=== PATIENT | male | born 1945 | race Caucasian/White ===

== ENCOUNTER → 2018-03-17 | Day surgery (SDC) | payer OTHER ==
[2018-03-08 11:21] VITALS: Ht 172.7 cm; Wt 105.5 kg
[~2018-03-17] VITALS: Ht 172.7 cm; Wt 105.5 kg
[~2018-03-17] MED LIST: ASCO500T3 PO; ASPI81TA28 PO; BIOFTAB30 PO; CARV6.252 PO; CITA20TA9 PO; FENO54TA PO; LIDOCAINE HCL 2% 2 ML VIAL (20MG/ML) ONE; LISI40TA PO; MULT-513 PO; PROPOFOL IV EMULSION 10 MG/ML 20 ML VIAL IV ONE; RANI150T85 PO; SIMV20TA2 PO; SODIUM CHLORIDE 0.9% 500ML 500 ML IV ONE
--- NOTE | 2018-03-17 11:21 | Endo History and Physical ---
History & Physical Date of Service: Mar 17, 2018. Chief Complaint: history of polyps,diarrhea Referring Physician: Dr. David Jordan History of Present Illness Screening colonoscopy. History of diarrhea Past Surgical History Hx Cardiac Surgery: Yes (CABG-2 VESSELS) Hx Internal Defibrillator: No Hx Pacemaker: No Hx Abdominal Surgery: Yes ([facility]) Hx of Implantable Prosthesis: No Hx Post-Op Nausea and Vomiting: No Hx Cancer Surgery: No Hx Thoracic Surgery: No Hx Orthopedic: No Hx Urinary Tract Surgery: No Family History None Social History Smoking Status: Never Smoker Hx Substance Use: No Hx Alcohol Use: Yes (OCCASIONALLY) Allergies Coded Allergies: No Known Allergies (Unverified , 03/08/18) Current Medications Reported Home Medications Medications Dose Route/Sig Max Daily Dose Days Date Category Zocor (Simvastatin) 20 Mg Tab 20 Mg PO QPM 03/08/18 Reported Prinivil (Lisinopril) 40 Mg Tab 40 Mg PO QPM 03/08/18 Reported Vitamin C (Ascorbic Acid) 500 Mg Tab 1 Tab PO QPM 03/08/18 Reported Mvi With Minerals (Multivitamins/Minerals) Tab 1 Tab PO QPM 03/08/18 Reported Tricor (Fenofibrate) 54 Mg Tab 54 Mg PO QPM 01/19/18 Reported Celexa (Citalopram Hydrobromide) 20 Mg Tab 20 Mg PO QPM 01/19/18 Reported Coreg (Carvedilol) 6.25 Mg Tab 6.25 Mg PO BID 01/19/18 Reported Bioflex (Bioflavonoid Products) 1 Tab Tab 1 Tab PO QPM 01/19/18 Reported Aspirin Ec (Aspirin) 81 Mg Tab 81 Mg PO QPM 01/19/18 Reported Zantac (Ranitidine HCl) 150 Mg Tab 150 Mg PO BID 01/19/18 Reported Vital Signs Weight (Kilograms): 105.45 Height (Feet): 5 Height (Inches): 8 Date Time Temp Pulse Resp B/P (MAP) Pulse Ox O2 Delivery O2 Flow Rate FiO2 03/17/18 10:55 36.8 61 18 179/101 (127) 93 Room Air 154/86 (108) Physical Exam General Appearance: WD/WN, no apparent distress Respiratory/Chest: Auscultation: breath sounds normal, no wheezing Cardiovascular: Heart Auscultation: RRR, no murmurs Abdomen: Inspection & Palpation: soft, no tenderness, guarding & rebound Assessment and Plan Colonoscopy today
--- NOTE | 2018-03-17 12:25 | GI REPORT ---
Procedure Date: 03/17/2018 11:15 AM Procedure: Colonoscopy Indications: Screening for colorectal malignant neoplasm, Incidental - Chronic diarrhea Medicines: Propofol per Anesthesia Complications: No immediate complications. Estimated blood loss: None. Estimated Blood Loss: Estimated blood loss: none. Procedure: Pre-Anesthesia Assessment: - Prior to the procedure, a History and Physical was performed, and patient medications, allergies and sensitivities were reviewed. The patient's tolerance of previous anesthesia was reviewed. - ASA Grade Assessment: III - A patient with severe systemic disease. After I obtained informed consent, the scope was passed under direct vision. Throughout the procedure, the patient's blood pressure, pulse, and oxygen saturations were monitored continuously. The Scope was introduced through the anus and advanced to the terminal ileum, with identification of the appendiceal orifice and IC valve. The colonoscopy was performed with ease. The patient tolerated the procedure well. The quality of the bowel preparation was good. The bowel preparation used was split dose MIralax. Findings: Multiple large-mouthed diverticula were found in the left colon. Normal mucosa was found in the entire colon. Biopsies for histology were taken with a cold forceps from the entire colon for evaluation of microscopic colitis. Verification of patient identification for the specimen was done by the physician and nurse using the patient's name, date and medical record number. Impression: - Diverticulosis in the left colon. - Normal mucosa in the entire examined colon. Biopsied. - The colon was otherwise normal to the terminal ileum with retroflexed views of the ascending colon and rectum. Recommendation: - Await pathology results. - Discharge patient to home (with escort). Chris Robertson M.D. Chris Robertson MD 03/17/2018 12:25:00 PM This report has been signed electronically. Note Initiated On: 03/17/2018 11:15 AM I attest to the content of the Intraoperative Record and orders documented therein, exceptions below
--- NOTE | 2018-03-17 12:26 | Discharge Instructions ---
Endoscopy Patient Instructions Date / Procedure(s) Performed Mar 17, 2018. Colonoscopy Allergy Information Coded Allergies: No Known Allergies (Unverified , 03/17/18) Discharge Date / Findings Mar 17, 2018. Diverticulosis Medication Instructions Stopped Medication(s): last dose ASA Wednesday Restart Stopped Medication(s): Resume all medication today. Provider Instructions Activity Restrictions - No exercising or heavy lifting for 24 hours. - Do not drink alcohol the day of the procedure. - Do not drive a car or operate machinery until the day after the procedure. - Do not make any important decisions or sign important papers in 24 hours after the procedure. Following Day: - Return to full activity which may include returning to work/school. Diet Start your diet with liquids and light foods (jello, soup, juice, toast). Then eat your usual diet if not nauseated. Treatment For Common After Affects For mild abdominal pain, bloating, or excessive gas: - Rest - Eat lightly - Lie on right side Follow-Up Information Follow-up with Dr. David Jordan as scheduled Anesthesia Information What You Should Know You have had a procedure that required some medicine to reduce anxiety and discomfort. This treatment is called moderate sedation. After receiving the treatment, you may be sleepy, but you will be able to breathe on your own. The effects of the treatment may last for several hours. Follow these instructions along with Activity/Diet recommendations noted above: * Do NOT do anything where dizziness or clumsiness would be dangerous. * Rest quietly at home today, then you can be up and about tomorrow. * Have a responsible person stay with you the rest of today. * You may have had an I.V. today. If so, you may take the dressing off later today. Recommendations Call your doctor if: * Trouble breathing * Continuous vomiting for more than 24 hours * Temperature above 101 degrees * Severe abdominal pain or bloating * Pain not relieved by pain medicine ordered * There is increased drainage or redness from any incision * A large amount of rectal bleeding greater than 2-3 tablespoons. (If you had a polyp/s removed or have hemorrhoids, a small amount of blood - from the rectum is to be expected.) * You have any unanswered questions or concerns. IN THE EVENT OF A SERIOUS EMERGENCY, GO TO THE NEAREST EMERGENCY ROOM Your discharge instructions were prepared by provider Chris Robertson. Patient Instructions Signature Page John Schofield Patient (or Guardian) Signature/Date: I have read and understand the instructions given to me by my caregivers. Caregiver/RN/Doctor Signature/Date: The above-named patient and/or guardian has received patient instructions on this date. + Original Patient Signature Page (only) stays with chart. Please make copy for patient.
[2018-03-17 12:55] VITALS: BP 141/91; PULSE 67; O2SAT 92
--- NOTE | 2018-03-17 13:37 | Anesthesiology Progress Note ---
Anesthesia Post Op Note Date & Time Mar 17, 2018 at 13:37 Vital Signs Pain Intensity: 0 Vital Signs Past 12 Hours Date Time Temp Pulse Resp B/P (MAP) Pulse Ox O2 Delivery O2 Flow Rate FiO2 03/17/18 12:55 67 18 141/91 (108) 92 Room Air 03/17/18 12:42 63 18 112/54 (73) 93 Room Air 03/17/18 12:22 70 18 126/72 (90) 90 Room Air 03/17/18 10:55 36.8 61 18 179/101 (127) 93 Room Air 154/86 (108) Notes Mental Status: alert / awake / arousable, participated in evaluation Pt Amnestic to Procedure: Yes Nausea / Vomiting: adequately controlled Pain: adequately controlled Airway Patency, RR, SpO2: stable & adequate BP & HR: stable & adequate Hydration State: stable & adequate Anesthetic Complications: no major complications apparent
== END | disposition home or self-care (01) ==
LOC: C.GI 10:34
PROVIDERS: ATTEND Internal Medicine Gastroenterology
DX: K52.9 Noninfective gastroenteritis and colitis, unspecified (principal); Z86.010 Personal history of colon polyps; K57.90 Diverticulosis of intestine, part unspecified, without perforation or abscess without bleeding; Z95.1 Presence of aortocoronary bypass graft; I10 Essential (primary) hypertension; N18.9 Chronic kidney disease, unspecified; K21.9 Gastro-esophageal reflux disease without esophagitis; F32.9 Major depressive disorder, single episode, unspecified; F17.220 Nicotine dependence, chewing tobacco, uncomplicated; E66.9 Obesity, unspecified; Z68.35 Body mass index [BMI] 35.0-35.9, adult; Z79.82 Long term (current) use of aspirin; Z79.899 Other long term (current) drug therapy; Z90.49 Acquired absence of other specified parts of digestive tract; I25.10 Atherosclerotic heart disease of native coronary artery without angina pectoris

== ENCOUNTER 2019-03-01 00:34 | Inpatient (IN) ==
[2019-03-01 01:31] LABS: Basophils # (auto) 0.04 K/uL (0-0.2); Basophils % (auto) 0.4 %; Eosinophils # (auto) 0.41 K/uL (0-0.5); Hematocrit (blood only) 44.6 % (42-52); Hemoglobin 16.2 g/dL (14.0-18.0); Immature Granulocytes # (auto) 0.05 K/uL (0.00-0.02); Immature Granulocytes % (auto) 0.5 %; Lymphocytes # (auto) 2.71 K/uL (1.2-3.4); Lymphocytes % (auto) 26.8 %; Mean Corpuscular Hgb Conc 36.3 g/dL (32-36); Mean Corpuscular Volume 98.9 fL (80-100); Mean Platelet Volume 8.9 fL (7.4-10.4); Monocytes # (auto) 1.06 K/uL (0.11-0.59); Monocytes % (auto) 10.5 %; Neutrophils # (auto) 5.86 K/uL (1.4-6.5); Neutrophils % (auto) 57.8 %; Platelet Count 186 K/uL (130-400); RDW Coefficient of Variation 12.5 % (11.5-14.5); RDW Standard Deviation 45.2 fL (36.4-46.3); Red Blood Count 4.51 M/uL (4.7-6.1); White Blood Count 10.13 K/uL (4.8-10.8)
[2019-03-01] MEDS ORDERED: fentaNYL citrate 100 MCG/2 ML VIAL IV STA (01:46)
[2019-03-01 02:04] LABS: Albumin Level 3.7 gm/dl (3.4-5.0); BUN Creatinine Ratio 12.9 (10-20); Calcium 8.9 mg/dl (8.5-10.1); Creatinine Clr Calc Pharmacy 82.8 ml/min; Est GFR (African American) 90.7; Est GFR (Non-African American) 78.2; Potassium 3.8 mmol/L (3.5-5.1)
[2019-03-01 02:07] LABS: Albumin Globulin Ratio 0.9 (0.9-2); Bilirubin,Total 0.5 mg/dl (0.2-1); Globulin 4.2 gm/dl (2.5-4.0); Total Protein 7.9 gm/dl (6.4-8.2)
[2019-03-01 02:07] LABS: Appearance Urine Clear (Clear); Bilirubin Urine Negative (Negative); Blood Urine Trace (Negative); Color Urine Yellow; Glucose Urine UA Negative (Negative); Ketones Urine Negative (Negative); Leukocyte Esterase Urine Negative (Negative); Nitrite Urine Negative (Negative); Protein Urine Negative (Negative); Urobilinogen Urine Negative (Negative)
[2019-03-01 02:19] LABS: RBC Urine 0-4 /hpf (0-4); WBC Urine 0-5 /hpf (0-5)
[2019-03-01 02:20] LABS: Bacteria Urine Negative (Negative)
[2019-03-01 02:54] LABS: Troponin I 0.046 ng/ml (0-0.045)
[2019-03-01] MEDS ORDERED: HYDROmorphone INJ 1 MG/ML SYRINGE IV STA (03:06)
--- NOTE | 2019-03-01 05:47 | History & Physical Report ---
Date of Service March 01, 2019 Assessment & Plan (1) Chest pain: Known coronary artery disease, status post CABG. Experiencing nonexertional chest/epigastric pain. Took nitroglycerin with relief. EKG does not show any acute changes. Serum troponin minimally elevated. Check repeat troponin. Continue aspirin, carvedilol, lipid management. Consult Cardiology. Epigastric/chest pain may be noncardiac. History of GERD. Consider trial of PPI. (2) Hx of coronary artery disease: Management of chest pain as above. (3) Flank pain: Patient complains of bilateral flank pain. No renal calculi or hydronephrosis noted on CT. Mild perinephric stranding was noted, but urine does not appear to be infected. Flank pain may be musculoskeletal in nature. Rule out rhabdomyolysis as discussed below. (4) Abnormal urinalysis: Urine chemistry positive for heme, but only 0-4 RBC's noted no microscopic analysis. Consider rhabdomyolysis. Check CPK with next labs. (5) HTN (hypertension): Continue carvedilol and lisinopril. (6) GERD (gastroesophageal reflux disease): Continue ranitidine. Consider trial of PPI if epigastric discomfort persists. (7) HLD (hyperlipidemia): Continue simvastatin and fenofibrate. Check CPK to rule out rhabdomyolysis. (8) DVT prophylaxis: Low to moderate risk for VTE. No anticoagulants due to possible hematuria. SCDs. Ambulate. (9) Discharge planning issues: Anticipated discharge to home. Family Medicine follow-up with Dr. Jordan. Cardiology follow-up with Dr. Barragan. History of Present Illness Chief Complaint: chest pain / flank pain Primary Care Provider: David Jordan 73-year-old male followed by Dr. Jordan for Family Medicine and Dr. Basurto for Cardiology. History of coronary artery disease (status post CABG and other medical problems as noted below). Ill last month with sinus drainage, bronchitis, diarrhea, and urticaria. Those symptoms have resolved. Presented to the ED complaining of bilateral flank pain. He was concerned that he was having problems with his kidneys. No fever, dysuria, gross hematuria. Also experiencing chest pain/epigastric pain. The pain does not radiate. Symptoms are nonexertional and not related to meals. He took a sublingual nitroglycerin tablet 2 nights prior to admission with some relief. No significant dyspnea. No nausea or vomiting. Allergies Allergy/AdvReac Type Severity Reaction Status Date / Time No Known Allergies Allergy Unverified 03/01/19 05:00 Home Medications Home Medications Medication Instructions Recorded Confirmed Type ascorbic acid (vitamin C) 1 g PO QPM 03/01/19 03/01/19 History aspirin 81 mg PO QPM 03/01/19 03/01/19 History carvedilol [Coreg] 6.25 mg PO BID 03/01/19 03/01/19 History citalopram 20 mg PO QPM 03/01/19 03/01/19 History fenofibrate 54 mg PO QPM 03/01/19 03/01/19 History lisinopril 40 mg PO QPM 03/01/19 03/01/19 History multivitamin with minerals 1 tab PO QPM 03/01/19 03/01/19 History ranitidine HCl 150 mg PO BID 03/01/19 03/01/19 History simvastatin 20 mg PO PM 03/01/19 03/01/19 History vit [id number] 1 tab PO QPM 03/01/19 03/01/19 History [Bioflex] Past Med/Surg History Medical History HTN (hypertension) (Chronic) HLD (hyperlipidemia) (Chronic) GERD (gastroesophageal reflux disease) (Chronic) Hx of coronary artery disease (Chronic) Surgical History S/P CABG x 2 (Chronic) Status post cholecystectomy (Chronic) Family History Father Coronary heart disease Parkinson disease Grandmother (Maternal) Diabetes Other No significant family history Social History Preferred Language: Danish Feels Safe at Home: Yes Smoking Status: Never smoker Review of Systems Constitutional: + sweats; no fever and no weight loss Eyes: no diplopia and no worsening vision Ear, Nose, Mouth, Throat: as per Subjective / HPI Respiratory: as per Subjective / HPI Cardiovascular: as per Subjective / HPI Gastrointestinal: + diarrhea/loose stools (few weeks ago, resolved); no nausea, no vomiting, no blood in stools and no melena Genitourinary (Male): + as per Subjective / HPI Musculoskeletal: + joint pain (back); no myalgia Integumentary: + rash (recent urticaria, resolved); no new lesions Neurologic: no headache(s) Endocrine: no polydipsia and no polyuria Hematologic / Lymphatic: no easy bleeding, no easy bruising and no lymphadenopathy Physical Exam Vital Signs (Past 24 Hours): Last Vital Signs Temp 36.7 C 03/01/19 00:39 Pulse 70 03/01/19 05:31 Resp 24 03/01/19 05:31 BP 136/72 03/01/19 05:31 Pulse Ox 94 03/01/19 05:31 Constitutional: WD/WN, vitals as above no acute distress Eyes: PERRL, conjunctivae normal, anicteric sclerae ENMT: external ear and nose normal, oropharynx normal Mouth: + edentulous Neck: trachea midline, no thyromegaly Respiratory: normal respiratory effort, lungs clear to auscultation Cardiovascular: Rate/Rhythm: regular rate Heart Sounds: + murmur (II/ sys murmur LSB); no gallop and no cardiac rub Vessels: normal peripheral pulses; no JVD Extremities: normal capillary refill; no calf tenderness and no edema Gastrointestinal (Abdomen): normal bowel sounds, soft, nontender, no hepatosplenomegaly ventral hernia Musculoskeletal: Head/Neck/Chest: neck supple Extremities: strength 5/5 throughout; no cyanosis and no clubbing Skin: no rashes, warm and dry Neurologic: PERRL, EOMI no facial palsy no dysarthria or aphasia patellar DTR's 2/2 bilat Psychiatric: Orientation: alert and oriented x 3 Affect: euthymic affect Lymphatic: no cervical lymphadenopathy Results & Data Laboratory Results Laboratory Results - last 24 hr 03/01/19 03/01/19 03/01/19 01:11 01:11 Unknown WBC 10.13 RBC 4.51 L Hgb 16.2 Hct 44.6 MCV 98.9 MCH 35.9 H MCHC 36.3 H RDW Std Deviation 45.2 RDW Coeff of Marti 12.5 Plt Count 186 MPV 8.9 Immature Gran % (Auto) 0.5 Neut % (Auto) 57.8 Lymph % (Auto) 26.8 Millard % (Auto) 10.5 Eos % (Auto) 4.0 Baso % (Auto) 0.4 Immature Gran # (Auto) 0.05 H Neut # (Auto) 5.86 Lymph # (Auto) 2.71 Millard # (Auto) 1.06 H Eos # (Auto) 0.41 Baso # (Auto) 0.04 Sodium 140 Potassium 3.8 Chloride 104 Carbon Dioxide 30 Anion Gap 6.0 BUN 13 Creatinine 0.97 Est Cr Clr Drug Dosing 82.8 Est GFR ( Amer) 90.7 Est GFR (Non-Af Amer) 78.2 BUN/Creatinine Ratio 12.9 Glucose 92 Calcium 8.9 Total Bilirubin 0.5 AST 23 ALT 27 Alkaline Phosphatase 70 Troponin I 0.046 H* Total Protein 7.9 Albumin 3.7 Globulin 4.2 H Albumin/Globulin Ratio 0.9 Lipase 214 Urine Color Urine Appearance Urine pH POC Urine pH 5 Ur Specific Roosevelt Urine Protein POC Urine Protein Trace H Urine Glucose (UA) POC Ur Glucose (UA) Normal Urine Ketones POC Urine Ketones Negative Urine Blood POC Urine Blood Trace H Urine Nitrite POC Urine Nitrite Negative Urine Bilirubin POC Urine Bilirubin Negative Urine Urobilinogen POC Urine Urobilinogen Normal Ur Leukocyte Esterase POC U Leukocyte Esteras Negative Urine RBC Urine WBC Ur Epithelial Cells Urine Bacteria Hyaline Casts 03/01/19 Unknown WBC RBC Hgb Hct MCV MCH MCHC RDW Std Deviation RDW Coeff of Marti Plt Count MPV Immature Gran % (Auto) Neut % (Auto) Lymph % (Auto) Millard % (Auto) Eos % (Auto) Baso % (Auto) Immature Gran # (Auto) Neut # (Auto) Lymph # (Auto) Millard # (Auto) Eos # (Auto) Baso # (Auto) Sodium Potassium Chloride Carbon Dioxide Anion Gap BUN Creatinine Est Cr Clr Drug Dosing Est GFR ( Amer) Est GFR (Non-Af Amer) BUN/Creatinine Ratio Glucose Calcium Total Bilirubin AST ALT Alkaline Phosphatase Troponin I Total Protein Albumin Globulin Albumin/Globulin Ratio Lipase Urine Color Yellow Urine Appearance Clear Urine pH 7.0 POC Urine pH Ur Specific Roosevelt 1.010 Urine Protein Negative POC Urine Protein Urine Glucose (UA) Negative POC Ur Glucose (UA) Urine Ketones Negative POC Urine Ketones Urine Blood Trace H POC Urine Blood Urine Nitrite Negative POC Urine Nitrite Urine Bilirubin Negative POC Urine Bilirubin Urine Urobilinogen Negative POC Urine Urobilinogen Ur Leukocyte Esterase Negative POC U Leukocyte Esteras Urine RBC 0-4 Urine WBC 0-5 Ur Epithelial Cells 5-10 H Urine Bacteria Negative Hyaline Casts 10-[address] ABD & PELVIS (preliminary interpretation per [employer]): No hydronephrosis No renal calculi Mild nonspecific perinephric stranding bilaterally noted on previous scan performed on 01/19/18 Colonic diverticulosis without evidence of diverticulitis No obstruction or free air Elevated right hemidiaphragm with associated pulmonary atelectasis Coronary artery calcifications Multilevel degenerative disease of lumbar spine ECG Additional Comments: EKG performed at 0115 reviewed and demonstrated normal sinus rhythm at 75/ min, no acute ST or T wave abnormalities.
[2019-03-01] MEDS ORDERED: NITROGLYCERIN SL 0.4 MG/TAB TAB SL PRN (06:05)
[2019-03-01] MEDS ORDERED: ACETAMINOPHEN 325 MG TAB PO PRN (06:05)
--- NOTE | 2019-03-01 06:34 | Emergency Department Note ---
Entered by Merrick Walls acting as a scribe for History of Present Illness General Chief complaint: Urinary Symptoms Stated complaint: KIDNEY PROBLEMS Time Seen by Provider: 03/01/19 00:46 Source: patient History of Present Illness Onset (ago): day(s) 4 Location: back Pain Consistency: + constant Maximum Pain Intensity: 5 Associated symptoms: + other (Positive for abdominal pain, numbness, weakness, and a rash.) The patient is a 73 year old male who presents to the emergency department with complaints of constant back pain beginning four days ago. The patient states that he feels as though his kidneys are not keeping up with his fluid intake. He notes that he has back pain and abdominal pain for the last four days that worsened last night. He reports that he is retaining fluid. He also complains of occasional numbness in his right arm, both hands, and tongue that started four days ago. The patient states that his numbness resolves when he urinates. He also complains of weakness that has significantly increased tonight. The patient describes an episode of hives that lasted for approximately 3 days. This occurred 4 days ago. He notes that he has a history of a heart bypass. He notes that he often gets indigestion, but he reports that he does not have any indigestion now. The patient states that he has been sick for the last month. Home Medications Home Medications Medication Instructions Recorded Confirmed Type ascorbic acid (vitamin C) 1 g PO QPM 03/01/19 03/01/19 History aspirin 81 mg PO QPM 03/01/19 03/01/19 History carvedilol [Coreg] 6.25 mg PO BID 03/01/19 03/01/19 History citalopram 20 mg PO QPM 03/01/19 03/01/19 History fenofibrate 54 mg PO QPM 03/01/19 03/01/19 History lisinopril 40 mg PO QPM 03/01/19 03/01/19 History multivitamin with minerals 1 tab PO QPM 03/01/19 03/01/19 History ranitidine HCl 150 mg PO BID 03/01/19 03/01/19 History simvastatin 20 mg PO PM 03/01/19 03/01/19 History vit [id number] 1 tab PO QPM 03/01/19 03/01/19 History [Bioflex] Allergies Allergy/AdvReac Type Severity Reaction Status Date / Time No Known Allergies Allergy Unverified 03/01/19 05:00 Past Med/Surg History Medical History HTN (hypertension) (Chronic) HLD (hyperlipidemia) (Chronic) GERD (gastroesophageal reflux disease) (Chronic) Hx of coronary artery disease (Chronic) Surgical History S/P CABG x 2 (Chronic) Status post cholecystectomy (Chronic) Family History Father Coronary heart disease Parkinson disease Grandmother (Maternal) Diabetes Other No significant family history Social History Preferred Language: Jordanian Communication Ability: Effective [employer] Required: No Beliefs That Will Affect Care: None Current Living Situation: Spouse Current Living Situation Comment: Lives at home with and brother. Other Information That Helps Us Care for You: No Feels Safe at Home: Yes Safety Concerns: Feels Safe At This Time Smoking Status: Never smoker Hx Alcohol Use: No Hx Substance Use: No Review of Systems See HPI for pertinent positives & negatives. and A total of 10 systems reviewed and were otherwise negative Physical Exam Vital Signs Vital Signs - 24 hr 03/01/19 00:39 03/01/19 01:28 03/01/19 02:03 Temperature 36.7 C Temperature Source Oral Sepsis Recent Fever Within 48 Hours No Sepsis New/Unexplained Change in Mental Status No Sepsis Action Taken by Nursing No Action Required Pulse Rate 79 Pulse Rate [Bilateral Apical] 75 71 Respiratory Rate 16 18 20 Respiratory Effort / Characteristics Non-Labored Spontaneous Non-Labored Non-Labored Respiratory Depth Normal Normal Normal Blood Pressure 146/67 H Blood Pressure [Left Arm] 134/90 156/87 H Blood Pressure Mean 93 Blood Pressure Mean [Left Arm] 104 110 Pulse Oximetry 94 95 94 Oxygen Delivery Method Room Air Room Air Room Air 03/01/19 02:23 03/01/19 02:51 03/01/19 03:12 Temperature Temperature Source Sepsis Recent Fever Within 48 Hours Sepsis New/Unexplained Change in Mental Status Sepsis Action Taken by Nursing Pulse Rate Pulse Rate [Bilateral Apical] 71 71 69 Respiratory Rate 18 18 20 Respiratory Effort / Characteristics Non-Labored Respiratory Depth Normal Blood Pressure Blood Pressure [Left Arm] 136/79 146/87 H 152/77 H Blood Pressure Mean Blood Pressure Mean [Left Arm] 98 106 102 Pulse Oximetry 92 95 94 Oxygen Delivery Method Room Air Room Air Room Air 03/01/19 04:40 03/01/19 05:01 03/01/19 05:31 Temperature Temperature Source Sepsis Recent Fever Within 48 Hours Sepsis New/Unexplained Change in Mental Status Sepsis Action Taken by Nursing Pulse Rate 76 73 70 Pulse Rate [Bilateral Apical] Respiratory Rate 15 20 24 Respiratory Effort / Characteristics Respiratory Depth Blood Pressure 119/66 114/84 136/72 Blood Pressure [Left Arm] Blood Pressure Mean 83 94 93 Blood Pressure Mean [Left Arm] Pulse Oximetry 95 92 94 Oxygen Delivery Method Room Air Room Air Room Air HEENT: Head - normocephalic and atraumatic Pupils are equal, round, and reactive to light. Extraocular eye muscles are intact, and sclera are anicteric. Nose - moist nasal mucosa without discharge. Mouth - moist buccal mucosa. Oropharynx is nonerythematous and there is no tonsillar exudate or edema noted. Neck: Supple; no JVD, nuchal rigidity, cervical lymphadenopathy, or auscultated bruits. Heart: Regular rate and rhythm. There is a normal S1 and S2 with no murmurs, clicks, or gallops appreciated. Lungs: Clear to auscultation bilaterally with no wheezes, rales, or rhonchi. Abdomen: Soft, completely nontender, nondistended, with good bowel sounds. There are no palpable pulsatile masses or hepatosplenomegaly. There is no guarding, rigidity, or rebound noted. Back: No CVA tenderness. Extremities: No evidence of cyanosis, clubbing, or edema. There are easily palpable peripheral pulses. Skin: warm and dry with good turgor and no rashes. Course 0053: The patient was evaluated in room A12. A complete history and physical examination were performed. IV lock was established and labs were drawn as above. Previous electronic medical records were reviewed. 0146: Fentanyl Citrate 50mcg IV 0236: I reevaluated and updated the patient. He had some relief of his pain with medications, but he states that his pain is coming back. 0306: Dilaudid 1mg IV. The patient will go for CT scan of the abdomen/pelvis. 0412: I rechecked the patient. He states that the Dilaudid helped his back pain. 0429: Upon reevaluation, the patient is stable. I discussed the results and treatment plan with the patient. He verbalizes understanding and agreement. I discussed the patient's case with Dr. Ralph - NICOLÁS Box. The patient will be evaluated for further management and care. Consultations Consultation #1: I reviewed the patient's case with NICOLÁS Michael. He will evaluate the patient for further management. Time: 04:29 Administered Medications Discontinued Medications Fentanyl Citrate (Fentanyl Citrate) 50 mcg IV NOW STA Stop: 03/01/19 01:47 Last Admin: 03/01/19 01:53 Dose: 50 mcg Documented by: [id number] Hydromorphone HCl (Dilaudid) 1 mg IV NOW STA Stop: 03/01/19 03:07 Last Admin: 03/01/19 03:10 Dose: 1 mg Documented by: [id number] Medical Decision Making Differential Diagnosis The patient is a 73 year old male who presents to the emergency department with complaints of constant back pain beginning four days ago and epigastric pain t hat seemed to worsen since yesterday. Differential diagnoses include: cardiac ischemia, pancreatitis, renal failure, liver failure, UTI, and pyelonephritis. Medical Records Attestation: I reviewed the patient's medical records. Home Medications Current Medication List: was personally reviewed by me Laboratory Data Attestation: I reviewed the patient's lab results. Result diagrams: 03/01/19 01:11 03/01/19 01:11 Lab Results 03/01/19 03/01/19 03/01/19 Range/Units 01:11 01:11 Unknown WBC 10.13 (4.8-10.8) K/uL RBC 4.51 L (4.7-6.1) M/uL Hgb 16.2 (14.0-18.0) g/dL Hct 44.6 (42-52) % MCV 98.9 (80-100) fL MCH 35.9 H (25-34) pg MCHC 36.3 H (32-36) g/dL RDW Std Deviation 45.2 (36.4-46.3) fL RDW Coeff of Marti 12.5 (11.5-14.5) % Plt Count 186 (130-400) K/uL MPV 8.9 (7.4-10.4) fL Immature Gran % (Auto) 0.5 % Neut % (Auto) 57.8 % Lymph % (Auto) 26.8 % [place] % (Auto) 10.5 % Eos % (Auto) 4.0 % Baso % (Auto) 0.4 % Immature Gran # (Auto) 0.05 H (0.00-0.02) K/uL Neut # (Auto) 5.86 (1.4-6.5) K/uL Lymph # (Auto) 2.71 (1.2-3.4) K/uL [place] # (Auto) 1.06 H (0.11-0.59) K/uL Eos # (Auto) 0.41 (0-0.5) K/uL Baso # (Auto) 0.04 (0-0.2) K/uL Sodium 140 (136-145) mmol/L Potassium 3.8 (3.5-5.1) mmol/L Chloride 104 (98-107) mmol/L Carbon Dioxide 30 (21-32) mmol/L Anion Gap 6.0 (3-11) BUN 13 (7-18) mg/dl Creatinine 0.97 (0.6-1.4) mg/dl Est Cr Clr Drug Dosing 82.8 ml/min Est GFR ( Amer) 90.7 Est GFR (Non-Af Amer) 78.2 BUN/Creatinine Ratio 12.9 (10-20) Glucose 92 (70-99) mg/dl Calcium 8.9 (8.5-10.1) mg/dl Total Bilirubin 0.5 (0.2-1) mg/dl AST 23 (15-37) U/L ALT 27 (12-78) U/L Alkaline Phosphatase 70 (45-117) U/L Troponin I 0.046 H* (0-0.045) ng/ml Total Protein 7.9 (6.4-8.2) gm/dl Albumin 3.7 (3.4-5.0) gm/dl Globulin 4.2 H (2.5-4.0) gm/dl Albumin/Globulin Ratio 0.9 (0.9-2) Lipase 214 (73-393) U/L Urine Color Urine Appearance (Clear) Urine pH (4.5-7.5) POC Urine pH 5 (4.5-7.5) Ur Specific [place] (1.000-1.030) Urine Protein (Negative) POC Urine Protein Trace H (Negative) Urine Glucose (UA) (Negative) POC Ur Glucose (UA) Normal (Normal) Urine Ketones (Negative) POC Urine Ketones Negative (Negative) Urine Blood (Negative) POC Urine Blood Trace H (Negative) Urine Nitrite (Negative) POC Urine Nitrite Negative (Negative) Urine Bilirubin (Negative) POC Urine Bilirubin Negative (Negative) Urine Urobilinogen (Negative) POC Urine Urobilinogen Normal (Normal) Ur Leukocyte Esterase (Negative) POC U Leukocyte Esteras Negative (Negative) Urine RBC (0-4) /hpf Urine WBC (0-5) /hpf Ur Epithelial Cells (0-5) /lpf Urine Bacteria (Negative) Hyaline Casts (0-5) /lpf 03/01/19 Range/Units Unknown WBC (4.8-10.8) K/uL RBC (4.7-6.1) M/uL Hgb (14.0-18.0) g/dL Hct (42-52) % MCV (80-100) fL MCH (25-34) pg MCHC (32-36) g/dL RDW Std Deviation (36.4-46.3) fL RDW Coeff of Marti (11.5-14.5) % Plt Count (130-400) K/uL MPV (7.4-10.4) fL Immature Gran % (Auto) % Neut % (Auto) % Lymph % (Auto) % [place] % (Auto) % Eos % (Auto) % Baso % (Auto) % Immature Gran # (Auto) (0.00-0.02) K/uL Neut # (Auto) (1.4-6.5) K/uL Lymph # (Auto) (1.2-3.4) K/uL [place] # (Auto) (0.11-0.59) K/uL Eos # (Auto) (0-0.5) K/uL Baso # (Auto) (0-0.2) K/uL Sodium (136-145) mmol/L Potassium (3.5-5.1) mmol/L Chloride (98-107) mmol/L Carbon Dioxide (21-32) mmol/L Anion Gap (3-11) BUN (7-18) mg/dl Creatinine (0.6-1.4) mg/dl Est Cr Clr Drug Dosing ml/min Est GFR ( Amer) Est GFR (Non-Af Amer) BUN/Creatinine Ratio (10-20) Glucose (70-99) mg/dl Calcium (8.5-10.1) mg/dl Total Bilirubin (0.2-1) mg/dl AST (15-37) U/L ALT (12-78) U/L Alkaline Phosphatase (45-117) U/L Troponin I (0-0.045) ng/ml Total Protein (6.4-8.2) gm/dl Albumin (3.4-5.0) gm/dl Globulin (2.5-4.0) gm/dl Albumin/Globulin Ratio (0.9-2) Lipase (73-393) U/L Urine Color Yellow Urine Appearance Clear (Clear) Urine pH 7.0 (4.5-7.5) POC Urine pH (4.5-7.5) Ur Specific [place] 1.010 (1.000-1.030) Urine Protein Negative (Negative) POC Urine Protein (Negative) Urine Glucose (UA) Negative (Negative) POC Ur Glucose (UA) (Normal) Urine Ketones Negative (Negative) POC Urine Ketones (Negative) Urine Blood Trace H (Negative) POC Urine Blood (Negative) Urine Nitrite Negative (Negative) POC Urine Nitrite (Negative) Urine Bilirubin Negative (Negative) POC Urine Bilirubin (Negative) Urine Urobilinogen Negative (Negative) POC Urine Urobilinogen (Normal) Ur Leukocyte Esterase Negative (Negative) POC U Leukocyte Esteras (Negative) Urine RBC 0-4 (0-4) /hpf Urine WBC 0-5 (0-5) /hpf Ur Epithelial Cells 5-10 H (0-5) /lpf Urine Bacteria Negative (Negative) Hyaline Casts 10-30 H (0-5) /lpf Imaging Data Radiologist's Impression: Radiology results as stated below per my review and the radiologist's interpretation: CT ABDOMEN & PELVIS Without Contrast: Comparison: CT abdomen and pelvis 01/19/18 No renal stone or hydronephrosis. Mild nonspecific perinephric stranding bilaterally, similar to prior. Colonic diverticulosis without evidence of acute diverticulitis. No free air or free fluid. No appendix. No bowel obstruction. Hepatic steatosis. Post cholecystectomy. No biliary ductal dilation. Elevation of right hemidiaphragm and atelectasis of right middle lobe and anterior and lateral right basilar segments. Fat-containing left inguinal hernia. Post sternotomy and CABG. Coronary artery calcifications. Atherosclerotic calcifications. Multilevel degenerative changes of the lumbar spine. Posterior disc/osteophytes and severe facet arthropathy cause moderate bilateral L4-5 foraminal narrowing. Healed rib fractures. Radiologist: Aldo Dubon MD. ECG Data Attestation: I personally reviewed and interpreted this ECG as follows: Indication: back/shoulder pain Rate (beats per minute): 75 Rhythm: normal sinus Findings: no PAC, no PVC, no ST depression and no ST elevation Blood Pressure Blood Pressure Findings: Elevated blood pressure Blood Pressure Disposition: further management by hospitalist MDM Narrative The patient is a 73 year old male who presents to the emergency department with complaints of constant back pain beginning four days ago and epigastric discomfort and weakness that worsened last night. The patient's pain was relieved with IV Dilaudid. Laboratory studies were fairly unremarkable with a normal lipase, normal LFTs, and a normal creatinine. The patient does have some blood in the urine. The patient had a mildly elevated troponin. This in conjunction with the patient's increased weakness had me concerned for cardiac ischemia. The patient had exertional chest pain approximately 10 years ago and had a stent placed in the LAD. I discussed the case with the [facility] Hospitalist and they will evaluate for further management. Impression & Plan Epigastric pain, Weakness Discharge Plan Visit Data *Final* Discharge Date/Time: 03/01/19 05:45 Chief Complaint: Urinary Symptoms Stated Complaint: KIDNEY PROBLEMS ED Provider: Syeda Rubio Discharge Problem: Epigastric pain, Weakness Patient Disposition: Admitted As Inpatient Discharge Instructions Interventions: ED Discharge Assessment Last Done: 03/01/19 05:45 The scribe's documentation has been prepared under my direction and personally reviewed by me in its entirety. I confirm that the note above accurately reflects all work, treatment, procedures, and medical decision making performed by me.
[2019-03-01 07:43] LABS: Albumin Level 3.4 gm/dl (3.4-5.0); BUN Creatinine Ratio 14.2 (10-20); Bilirubin Direct 0.1 mg/dl (0-0.2); Calcium 8.6 mg/dl (8.5-10.1); Creatinine Clr Calc Pharmacy 72.8 ml/min; Est GFR (African American) 77.9; Est GFR (Non-African American) 67.2; Potassium 3.7 mmol/L (3.5-5.1)
[2019-03-01 07:54] LABS: Albumin Globulin Ratio 0.9 (0.9-2); Bilirubin,Total 0.4 mg/dl (0.2-1); Creatine Kinase MB 1.6 ng/ml (0.5-3.6); Globulin 3.9 gm/dl (2.5-4.0); Total Protein 7.3 gm/dl (6.4-8.2); Troponin I 0.052 ng/ml (0-0.045)
--- NOTE | 2019-03-01 07:57 | CT Scan Report ---
ABDOMEN AND PELVIS CT WITHOUT CONTRAST CT DOSE: 2062.47 mGy.cm HISTORY: Acute hematuria with low back pain eval of kidneys/hematuria TECHNIQUE: Multiaxial CT images of the abdomen and pelvis were performed without contrast. A dose lo wering technique was utilized adhering to the principles of ALARA. COMPARISON STUDY: CT abdomen pelvis 01/19/2018 FINDINGS: Prior median sternotomy and CABG. [place] coronary arterial calcifications are noted. Chronic right he midiaphragm elevation with right basilar atelectasis/scarring. Mild left basilar atelectasis also not ed. There is no pneumatosis or pneumoperitoneum. Prior cholecystectomy. Hepatic steatosis. Liver is otherwise unremarkable. Spleen, pancreas and adren al glands are unremarkable. Nonspecific mild bilateral perinephric stranding. There is no renal or ur eteral calculi identified. Urinary bladder is partially decompressed with mild wall thickening. Prost ate is mildly enlarged. Small to moderate sized fat filled left inguinal hernia. Calcification of the aorta without aneurysm. No adenopathy. There is no bowel obstruction identified. Colonic diverticulo sis. No definite CT evidence of acute diverticulitis. Terminal ileum and appendix appear normal. No a scites or mesenteric inflammation. Moderate sized fat filled subxiphoid ventral abdominal wall hernia , diastases of 3.4 cm. Healed remote right-sided rib fractures. Multilevel spondylitic spurring with facet arthropathy. IMPRESSION: 1. No acute intra-abdominal or intrapelvic abnormality identified. 2. No bowel obstruction or focal bowel wall thickening. Normal appendix. 3. Colonic diverticulosis without acute diverticulitis. 4. Prostamegaly with mild urinary bladder wall thickening suggestive of chronic bladder outlet obstru ction. Correlate with urinalysis to exclude cystitis. 5. Hepatic steatosis. 6. Additional findings as above. Electronically signed by: Kirill Lr M.D. 03/01/2019 7:55 AM
[2019-03-01] MEDS: CARVEDILOL 6.25 MG TAB PO SCH ×2 (08:07→21:11)
[2019-03-01] MEDS ORDERED: MoRPHine SULFATE 2 MG/ML CARP IV STA ×2 (08:54→14:53)
[2019-03-01] MEDS ORDERED: MoRPHine SULFATE 2 MG/ML CARP ONE (09:01)
[2019-03-01] MEDS: OXYCODONE HCL IR 5 MG TAB (IMMEDIATE RELEASE) PO PRN ×2 (09:06→22:45)
--- NOTE | 2019-03-01 09:08 | Hospitalist Progress Note ---
Date of Service March 01, 2019 Assessment & Plan (1) Chest pain: as per admitting physician the patient has Known coronary artery disease, status post CABG, and reported that patient had Experienced nonexertional chest/epigastric pain, and Took nitroglycerin with relief. admission EKGs have not shown EKG changes of acute ischemia but troponins have been minimally elevated above reference ranges of normal troponin 0.046 and 0.052 will trend troponins and keep on telemetry monitoring Continue aspirin, carvedilol, lipid management. cardiology consult was requested by admitting hospitalist Will also consider other non cardiac etiologies and place on trial of Pantoprazole in case of GERD, patient already on ranitidine (2) Hx of coronary artery disease: Management as above (3) Flank pain: Bilateral flank pain. No renal calculi or hydronephrosis noted on CT. Mild perinephric stranding was noted, but urine does not appear to be infected. Flank pain may be musculoskeletal in nature. No evidence of rhabdomyolysis as CK is normal Have advised patient of continuing hospital stay to keep patient for pain control including baclofen, acetaminophen, prn narcotic with bowel regimen, will have patient be evaluated by PT/OT (4) Abnormal urinalysis: admission Urine chemistry positive for heme, but only 0-4 RBC's noted no microscopic analysis No evidence of rhabdomyolysis as CK is normal will repeat the urine analysis (5) HTN (hypertension): Continue carvedilol and lisinopril. (6) GERD (gastroesophageal reflux disease): place on trial of Pantoprazole in case of GERD, patient already on ranitidine (7) HLD (hyperlipidemia): Continue simvastatin and fenofibrate. No evidence of rhabdomyolysis as CK is normal (8) DVT prophylaxis: Low to moderate risk for VTE. SCDs. Ambulation (9) Discharge planning issues: will need Family Medicine follow-up with Dr. Jordan. Cardiology follow-up with Dr. Barragan. Subjective Patient seen and examined this AM. He was in discomfort for back pain and the the back pain of the lower back of the right and left flanks.Reports that back pain since the weekend. Denied chest pain. denies shortness of breath. Patient reported having minimal sleep Patient rolled over to the side for the back exam Physical Exam Vital Signs (Past 24 Hours): Last Vital Signs Temp 36.5 C 03/01/19 07:36 Pulse 60 04/03/19 07:36 Resp 18 03/01/19 07:36 BP 156/83 H 03/01/19 07:36 Pulse Ox 93 03/01/19 07:36 Constitutional: back pain Eyes: PERRL, conjunctivae normal, anicteric sclerae EOM intact bilaterally ENMT: external ear and nose normal, oropharynx normal Respiratory: normal respiratory effort, lungs clear to auscultation Cardiovascular: Rate/Rhythm: + bradycardic Gastrointestinal (Abdomen): normal bowel sounds, soft, nontender, no hepatosplenomegaly Musculoskeletal: Head/Neck/Chest: normocephalic and head atraumatic patient reports of pain of the right and left costovertebral angle, there is no tenderness along the spine Neurologic: PERRL, EOMI, accommodation nl, no face palsy, no dysarthria Psychiatric: Orientation: alert and oriented x 3
[2019-03-01] MEDS: SENNA 8.6 MG TAB PO SCH (09:47)
[2019-03-01] MEDS ORDERED: BACLOFEN 10 MG TAB PO ONE (10:00)
[2019-03-01] MEDS: PANTOprazole 40 MG TAB PO SCH (10:05)
[2019-03-01 10:40] LABS: Appearance Urine Cloudy (Clear); Bacteria Urine Automated Negative (Negative); Blood Urine Trace (Negative); Color Urine Dark Yellow; Epithelial Cell Urine Auto >30 /lpf (0-5); Glucose Urine UA Negative (Negative); Ketones Urine Trace (Negative); Leukocyte Esterase Urine Negative (Negative); Nitrite Urine Negative (Negative); Protein Urine Trace (Negative); RBC Urine Automated 0-4 /hpf (0-4); Specific Gravity Urine 1.023 (1.000-1.030); Urobilinogen Urine Negative (Negative)
[2019-03-01 10:45] LABS: Bilirubin Urine Negative (Negative); Ictotest Urine Negative (Negative)
[2019-03-01 10:51] LABS: Cast Urine Automated >30 /lpf (0-5); Granular Casts Urine 20-30 /lpf (0)
[2019-03-01 10:52] LABS: Mucus Urine Present (None Prsent)
--- NOTE | 2019-03-01 11:02 | Cardiology Consultation ---
Date of Consultation March 01, 2019 Assessment & Plan (1) Flank pain: The patient presented to the emergency room overnight last night with complaints of bilateral flank pain posteriorly at the lower margins. He also describes recent on and off again indigestion and diarrhea. He has had concern over the last few weeks that he was having a recurrence of a similar illness to what he was hospitalized for last year at which time he presented with what was ultimately diagnosed as Campylobacter enteritis with positive stool culture and acute kidney injury. Patient states he has been trying to "drink plenty of water at home." CT of the abdomen and pelvis has been nonrevealing thus far. CPK is not suggestive of rhabdomyolysis. I discussed his case with Dr. Desir of the hospitalist group, and I recommended repeating stool culture and Clostridium difficile testing. (2) Chest pain: The patient describes recent episodic chest tightness, 3 recent episodes at home 1 of which he took nitroglycerin. His EKG is normal x2. He has a mild elevation in cardiac enzymes x2. Of note when he was acutely ill in December 2017 with significant acute kidney injury, he had one troponin level drawn that was normal he did not have a significant troponin elevation despite significant noncardiac illness at that time. I believe the symptoms that he is experiencing represent angina is being brought on due to his physiologic stress of yet to be determined noncardiac illness. He is asymptomatic from an anginal standpoint at present and his EKG is normal, and therefore I am going to hold off on systemic anticoagulation. He should continue his outpatient cardiac medications. Further ischemic evaluation Will be pursued after assessment of his flank pain/low back pain is completed. Ordered a transthoracic echocardiogram. We will follow the patient. He has not on pharmacologic DVT prophylaxis at present, will reassess candidacy of this pending potential need for invasive procedures. History of Present Illness Attending Physician: Tremaine Desir MD History of Present Illness John Schofield is a 73-year-old male seen in cardiology consultation per the request of Dr. Ralph for the evaluation of recent chest tightness, and mild elevation in troponin I. The patient states that since early January he has not quite been feeling himself. This started with a significant sinus infection. He did not receive antibiotics for but notes thick copious sinus drainage and postnasal drip. After that resolved he started having episodic diarrhea. He recalls having 3 significant days in a row with diarrhea last month. Since then he has had waxing and waning occasional significant diarrhea episodes. For the last 5 days he specifically felt like he was not quite himself. Early in the day yesterday he felt that perhaps he was feeling better but then had recurrence of the pain at the lower margin of his posterior ribs that occurred shortly after an episode of diarrhea. He notes that with the episodic pain in his back, diarrhea, and this indigestion feeling, he has had occasional chest tightness. He believes he has had chest tightness 3 times in the last week. He took nitroglycerin on 1 occasion for this. Mr. Schofield has a history of chronic coronary heart disease. He had most recently been seen by the undersigned as an outpatient on 07/04/18 at which time he describes stable cardiac signs and symptoms. His coronary heart disease became recognized in 2008 when he presented with complaints of exertional shortness of breath. A stress echocardiogram was equivocal due to technically limited images with poor delineation of the endocardial border. He went on to have a nuclear stress test that revealed apical ischemia as well as transient ischemic dilatation of the left ventricle. Follow-up cardiac catheter[place] [facility] [place] a 60% left main stenosis as confirmed by intravascular ultrasound assessment. No significant obstructive disease was noted elsewhere. He therefore underwent CABG x2 with BARRAGAN to LAD and SVG to the ramus intermedius performed at [facility] on 08/27/09. Of note the patient had been hospitalized in December, with abdominal discomfort and acute kidney injury. His creatinine had peaked at 8.38 at that time. He was ultimately diagnosed with Campylobacter enteritis. Allergies Allergy/AdvReac Type Severity Reaction Status Date / Time No Known Allergies Allergy Unverified 03/01/19 05:00 Home Medications Home Medications Medication Instructions Recorded Confirmed Type ascorbic acid (vitamin C) 1 g PO QPM 03/01/19 03/01/19 History aspirin 81 mg PO QPM 03/01/19 03/01/19 History carvedilol [Coreg] 6.25 mg PO BID 03/01/19 03/01/19 History citalopram 20 mg PO QPM 03/01/19 03/01/19 History fenofibrate 54 mg PO QPM 03/01/19 03/01/19 History lisinopril 40 mg PO QPM 03/01/19 03/01/19 History multivitamin with minerals 1 tab PO QPM 03/01/19 03/01/19 History ranitidine HCl 150 mg PO BID 03/01/19 03/01/19 History simvastatin 20 mg PO PM 03/01/19 03/01/19 History vit [id number] 1 tab PO QPM 03/01/19 03/01/19 History [Bioflex] Patient History Medical History HTN (hypertension) (Chronic) HLD (hyperlipidemia) (Chronic) GERD (gastroesophageal reflux disease) (Chronic) Hx of coronary artery disease (Chronic) Surgical History S/P CABG x 2 (Chronic) Status post cholecystectomy (Chronic) Family History Father Coronary heart disease Parkinson disease Grandmother (Maternal) Diabetes Other No significant family history Social History Preferred Language: [place] Communication Ability: Effective Vascular Neurologist Required: No Beliefs That Will Affect Care: None Current Living Situation: Spouse Current Living Situation Comment: Lives at home with and brother. Other Information That Helps Us Care for You: No Feels Safe at Home: Yes Safety Concerns: Feels Safe At This Time Smoking Status: Never smoker Hx Alcohol Use: No Hx Substance Use: No Review of Systems 10 point review of systems is reviewed and is negative with the exception of that above Physical Exam Vital Signs (Past 24 Hours): Last Vital Signs Temp 36.5 C 03/01/19 07:36 Pulse 60 03/01/19 07:36 Resp 18 03/01/19 07:36 BP 156/83 H 03/01/19 07:36 Pulse Ox 93 03/01/19 07:36 Constitutional: + ill appearing Respiratory: normal respiratory effort, lungs clear to auscultation Cardiovascular: RRR, no murmur, no edema Vessels: no JVD Gastrointestinal (Abdomen): normal bowel sounds, soft, nontender, no hepatosplenomegaly Neurologic: moves all extremities and awake; no focal motor deficits Results & Data Laboratory Results Cardiac Enzymes 03/01/19 03/01/19 Range/Units 01:11 07:00 AST 23 30 (15-37) U/L CK-MB (CK-2) 1.6 (0.5-3.6) ng/ml Troponin I 0.046 H* 0.052 H* (0-0.045) ng/ml Lipids 03/01/19 Range/Units 07:00 Triglycerides 183 H (0-150) mg/dl Cholesterol 115 (0-200) mg/dl HDL Cholesterol 28 mg/dl Cholesterol/HDL Ratio 4 CBC 03/01/19 Range/Units 01:11 WBC 10.13 (4.8-10.8) K/uL RBC 4.51 L (4.7-6.1) M/uL Hgb 16.2 (14.0-18.0) g/dL Hct 44.6 (42-52) % Plt Count 186 (130-400) K/uL Neut # (Auto) 5.86 (1.4-6.5) K/uL Lymph # (Auto) 2.71 (1.2-3.4) K/uL [place] # (Auto) 1.06 H (0.11-0.59) K/uL Eos # (Auto) 0.41 (0-0.5) K/uL Baso # (Auto) 0.04 (0-0.2) K/uL Comprehensive Metabolic Panel 03/01/19 03/01/19 Range/Units 01:11 07:00 Sodium 140 139 (136-145) mmol/L Potassium 3.8 3.7 (3.5-5.1) mmol/L Chloride 104 103 (98-107) mmol/L Carbon Dioxide 30 30 (21-32) mmol/L BUN 13 16 (7-18) mg/dl Creatinine 0.97 1.10 (0.6-1.4) mg/dl Glucose 92 93 (70-99) mg/dl Calcium 8.9 8.6 (8.5-10.1) mg/dl Direct Bilirubin 0.1 (0-0.2) mg/dl AST 23 30 (15-37) U/L ALT 27 28 (12-78) U/L Alkaline Phosphatase 70 59 (45-117) U/L Total Protein 7.9 7.3 (6.4-8.2) gm/dl Albumin 3.7 3.4 (3.4-5.0) gm/dl Intake and Output 02/28/19 03/01/19 03/01/19 22:59 06:59 14:59 Output Total 200 / 200 Balance -200 / -200 Output: Urine 200 / 200 Other: Weight 106.3 kg Diagnostic Findings EKG performed this morning 03/01/2019 at 749 reveals normal sinus rhythm at 62 bpm without significant repolarization changes. Compared to the prior performed at 1:15 AM no significant change was noted. Medications Administered Current Inpatient Medications Acetaminophen (Tylenol) 650 mg PO Q4H PRN PRN Reason: Pain or Fever Stop: 03/31/19 06:04 Ascorbic Acid (Vitamin C) 1,000 mg PO QPM [facility] Stop: 03/31/19 20:59 Aspirin (Ecotrin Ectab) 81 mg PO QPM [facility] Stop: 03/31/19 20:59 Baclofen (Lioresal) 10 mg PO BID [facility] Stop: 03/31/19 20:59 Carvedilol (Coreg) 6.25 mg PO BID [facility] Stop: 03/31/19 08:59 Last Admin: 03/01/19 08:07 Dose: 6.25 mg Documented by: Citalopram Hydrobromide (Celexa) 20 mg PO QPM [facility] Stop: 03/31/19 20:59 Docusate Sodium (Colace) 100 mg PO BID [facility] Stop: 03/31/19 20:59 Lisinopril (Zestril) 40 mg PO QPM [facility] Stop: 03/31/19 20:59 Miscellaneous (Order Awaiting Action) 1 ea N/A QS [facility] Stop: 03/31/19 07:59 Miscellaneous (Order Awaiting Action) 1 ea N/A QS [facility] Stop: 03/31/19 07:59 Multivitamins/Minerals (Multivitamin W/ Minerals Tab) 1 tab PO QPM [facility] Stop: 03/31/19 20:59 Nitroglycerin (Nitrostat) 0.4 mg SL UD PRN PRN Reason: Chest Pain Stop: 03/31/19 06:04 Oxycodone HCl (Roxicodone Immediate Rel) 5 mg PO Q8H PRN PRN Reason: Pain Stop: 03/15/19 08:53 Last Admin: 03/01/19 09:06 Dose: 5 mg Documented by: Pantoprazole Sodium (Protonix) 40 mg PO QAM [facility] Stop: 03/31/19 09:14 Last Admin: 03/01/19 10:05 Dose: 40 mg Documented by: Ranitidine HCl (Zantac) 150 mg PO BID [facility] Stop: 03/31/19 08:59 Last Admin: 03/01/19 08:08 Dose: 150 mg Documented by: Sennosides (Senokot) 8.6 mg PO QAM [facility] Stop: 03/31/19 09:59 Last Admin: 03/01/19 09:47 Dose: 8.6 mg Documented by: Simvastatin (Zocor) 20 mg PO PM [facility] Stop: 03/31/19 20:59
[2019-03-01] MEDS ORDERED: AMLODIPINE BESYLATE 5 MG TAB PO ONE (12:05)
[2019-03-01] MEDS: FENOFIBRATE - ORDER AWAITING ACTION SCH ×2 (19:13→23:48)
[2019-03-01] MEDS: CITALOPRAM 20 MG TAB PO SCH (21:11)
[2019-03-01] MEDS: LISINOPRIL 40 MG TAB PO SCH (21:12)
[2019-03-01] MEDS: SIMVASTATIN 20 MG TAB PO SCH (21:12)
[2019-03-01] MEDS: ASCORBIC ACID 500 MG TAB PO SCH (21:12)
[2019-03-01] MEDS: BACLOFEN 10 MG TAB PO SCH (21:12)
[2019-03-01] MEDS: CEROVITE ADV FORMULA TAB PO SCH (21:12)
[2019-03-01] MEDS: DOCUSATE SODIUM 100 MG CAP PO SCH (21:13)
[2019-03-01] MEDS: ASPIRIN 81 MG ECTAB PO SCH (21:13)
[2019-03-01] MEDS: MoRPHine SULFATE 2 MG/ML CARP IV PRN (21:20)
[2019-03-02] MEDS ORDERED: HYDROmorphone INJ 0.5 MG/0.5 ML SYR IV STA (02:39)
[2019-03-02 05:55] LABS: Basophils # (auto) 0.05 K/uL (0-0.2); Basophils % (auto) 0.5 %; Eosinophils # (auto) 0.55 K/uL (0-0.5); Eosinophils % (auto) 5.9 %; Hematocrit (blood only) 43.9 % (42-52); Hemoglobin 15.5 g/dL (14.0-18.0); Immature Granulocytes # (auto) 0.03 K/uL (0.00-0.02); Immature Granulocytes % (auto) 0.3 %; Lymphocytes # (auto) 2.21 K/uL (1.2-3.4); Lymphocytes % (auto) 23.7 %; Mean Corpuscular Hgb Conc 35.3 g/dL (32-36); Mean Corpuscular Volume 101.2 fL (80-100); Mean Platelet Volume 8.8 fL (7.4-10.4); Monocytes # (auto) 0.91 K/uL (0.11-0.59); Monocytes % (auto) 9.8 %; Neutrophils # (auto) 5.58 K/uL (1.4-6.5); Neutrophils % (auto) 59.8 %; Platelet Count 177 K/uL (130-400); RDW Coefficient of Variation 12.5 % (11.5-14.5); Red Blood Count 4.34 M/uL (4.7-6.1); White Blood Count 9.33 K/uL (4.8-10.8)
[2019-03-02 06:14] LABS: Albumin Level 3.5 gm/dl (3.4-5.0); BUN Creatinine Ratio 18.3 (10-20); Calcium 8.9 mg/dl (8.5-10.1); Creatinine Clr Calc Pharmacy 95.2 ml/min; Est GFR (African American) 102.1; Est GFR (Non-African American) 88.1; Potassium 3.9 mmol/L (3.5-5.1)
[2019-03-02 06:18] LABS: Albumin Globulin Ratio 0.9 (0.9-2); Bilirubin,Total 0.6 mg/dl (0.2-1); Total Protein 7.5 gm/dl (6.4-8.2); Troponin I 0.027 ng/ml (0-0.045)
[2019-03-02] MEDS: DOCUSATE SODIUM 100 MG CAP PO SCH ×2 (08:09→19:28)
[2019-03-02] MEDS: SENNA 8.6 MG TAB PO SCH (08:10)
[2019-03-02] MEDS: BACLOFEN 10 MG TAB PO SCH ×2 (08:10→19:28)
[2019-03-02] MEDS: PANTOprazole 40 MG TAB PO SCH (08:10)
[2019-03-02] MEDS: CARVEDILOL 6.25 MG TAB PO SCH ×2 (08:10→19:28)
[2019-03-02] MEDS: OXYCODONE HCL IR 5 MG TAB (IMMEDIATE RELEASE) PO PRN ×2 (09:05→19:27)
[2019-03-02] MEDS: MoRPHine SULFATE 2 MG/ML CARP IV PRN ×3 (09:06→22:01)
[2019-03-02] MEDS ORDERED: KETOROLAC TROMETHAMINE 15 MG/ML VIAL IV ONE (13:51)
--- NOTE | 2019-03-02 15:18 | Cardiology Progress Note ---
Date of Service March 02, 2019 Assessment & Plan (1) Back pain: The patient's episode of low back pain that he described to me having occurred last evening does not sound community service representative of angina. I reviewed the report of his recent CT of the abdomen and pelvis, and I do not see any findings to explain this episodic pain. I am concerned that he has his generalized pain and as a result he is having angina occasionally as a result of the physical stress, but I do not think that myocardial ischemia is his primary issue. At this time we will proceed with MRI of the lumbar spine and sacrum. (2) Chest pain: As noted above, I think we need further exploration of noncardiac illness. We then turned attention back to ischemic workup. Subjective Chief complaint: Follow-up low back pain, chest pain, mild troponin elevation Subjective: The patient felt ill overnight last night. He had an episode of pain once again posteriorly above his hips and he describes as being his low back that radiated up into his cervical spine. He had no associated chest pain or shortness of breath. It was not brought on with physical exertion but rather while he was resting in bed. Troponin this morning was negative. Physical Exam Vital Signs (Past 24 Hours): Last Vital Signs Temp 36.5 C 03/02/19 11:32 Pulse 86 03/02/19 11:32 Resp 18 03/02/19 11:32 BP 117/71 03/02/19 11:32 Pulse Ox 92 03/02/19 11:32 Physical Exam: General: no acute distress and stated age Eyes: conjunctiva are pink and non-injected, sclera clear Neck: normal jugular venous pulse, no hepatojugular reflux Chest: normal shape and normal respiratory effort Lungs: clear to auscultation and percussion Cardiac Exam: - regular heart sounds, no murmurs, rubs, or gallops, no jugular venous distention Abdomen: abdomen soft, non-tender, no abnormal masses and no hepatosplenomegaly Musculoskeletal: no gait disturbance, no weakness Extremities: no edema and no cyanosis Neuro:awake, coversant, follows commands, no focal motor deficits Psych: appropriate affect and insight. Results & Data Laboratory Results Cardiac Enzymes 03/02/19 Range/Units 05:08 AST 36 (15-37) U/L Troponin I 0.027 (0-0.045) ng/ml CBC 03/02/19 Range/Units 05:08 WBC 9.33 (4.8-10.8) K/uL RBC 4.34 L (4.7-6.1) M/uL Hgb 15.5 (14.0-18.0) g/dL Hct 43.9 (42-52) % Plt Count 177 (130-400) K/uL Neut # (Auto) 5.58 (1.4-6.5) K/uL Lymph # (Auto) 2.21 (1.2-3.4) K/uL [place] # (Auto) 0.91 H (0.11-0.59) K/uL Eos # (Auto) 0.55 H (0-0.5) K/uL Baso # (Auto) 0.05 (0-0.2) K/uL Comprehensive Metabolic Panel 03/02/19 Range/Units 05:08 Sodium 138 (136-145) mmol/L Potassium 3.9 (3.5-5.1) mmol/L Chloride 104 (98-107) mmol/L Carbon Dioxide 30 (21-32) mmol/L BUN 15 (7-18) mg/dl Creatinine 0.84 (0.6-1.4) mg/dl Glucose 105 H (70-99) mg/dl Calcium 8.9 (8.5-10.1) mg/dl AST 36 (15-37) U/L ALT 32 (12-78) U/L Alkaline Phosphatase 64 (45-117) U/L Total Protein 7.5 (6.4-8.2) gm/dl Albumin 3.5 (3.4-5.0) gm/dl Intake and Output 03/02/19 03/02/19 03/02/19 06:59 14:59 22:59 Output Total 400 / 2175 600 / 600 Balance -400 / -535 -600 / -600 Output: Urine 400 / 2175 600 / 600 Other: Other Intake Source npo NPO Weight 106.1 kg Medications Administered Current Inpatient Medications Acetaminophen (Tylenol) 650 mg PO Q4H PRN PRN Reason: Pain or Fever Stop: 03/31/19 06:04 Last Admin: 03/01/19 13:57 Dose: 650 mg Documented by: Ascorbic Acid (Vitamin C) 1,000 mg PO QPM [facility] Stop: 03/31/19 20:59 Last Admin: 03/01/19 21:12 Dose: 1,000 mg Documented by: Aspirin (Ecotrin Ectab) 81 mg PO QPM [facility] Stop: 03/31/19 20:59 Last Admin: 03/01/19 21:13 Dose: 81 mg Documented by: Baclofen (Lioresal) 10 mg PO BID [facility] Stop: 03/31/19 20:59 Last Admin: 03/02/19 08:10 Dose: 10 mg Documented by: Carvedilol (Coreg) 6.25 mg PO BID [facility] Stop: 03/31/19 08:59 Last Admin: 03/02/19 08:10 Dose: 6.25 mg Documented by: Citalopram Hydrobromide (Celexa) 20 mg PO QPM [facility] Stop: 03/31/19 20:59 Last Admin: 03/01/19 21:11 Dose: 20 mg Documented by: Docusate Sodium (Colace) 100 mg PO BID [facility] Stop: 03/31/19 20:59 Last Admin: 03/02/19 08:09 Dose: 100 mg Documented by: Lisinopril (Zestril) 40 mg PO QPM [facility] Stop: 03/31/19 20:59 Last Admin: 03/01/19 21:12 Dose: 40 mg Documented by: Miscellaneous (Order Awaiting Action) 1 ea N/A QS [facility] Stop: 03/31/19 07:59 Last Admin: 03/01/19 23:48 Dose: Not Given Documented by: Miscellaneous (Order Awaiting Action) 1 ea N/A QS [facility] Stop: 03/31/19 07:59 Last Admin: 03/01/19 23:48 Dose: Not Given Documented by: Morphine Sulfate (Morphine Sulfate) 1 mg IV Q6H PRN PRN Reason: Pain Stop: 03/15/19 14:53 Last Admin: 03/02/19 09:06 Dose: 1 mg Documented by: Multivitamins/Minerals (Multivitamin W/ Minerals Tab) 1 tab PO QPM [facility] Stop: 03/31/19 20:59 Last Admin: 03/01/19 21:12 Dose: 1 tab Documented by: Nitroglycerin (Nitrostat) 0.4 mg SL UD PRN PRN Reason: Chest Pain Stop: 03/31/19 06:04 Oxycodone HCl (Roxicodone Immediate Rel) 5 mg PO Q8H PRN PRN Reason: Pain Stop: 03/15/19 08:53 Last Admin: 03/02/19 09:05 Dose: 5 mg Documented by: Pantoprazole Sodium (Protonix) 40 mg PO QAM [facility] Stop: 03/31/19 09:14 Last Admin: 03/02/19 08:10 Dose: 40 mg Documented by: Ranitidine HCl (Zantac) 150 mg PO BID [facility] Stop: 03/31/19 08:59 Last Admin: 03/02/19 08:10 Dose: 150 mg Documented by: Sennosides (Senokot) 8.6 mg PO QAM [facility] Stop: 03/31/19 09:59 Last Admin: 03/02/19 08:10 Dose: 8.6 mg Documented by: Simvastatin (Zocor) 20 mg PO PM [facility] Stop: 03/31/19 20:59 Last Admin: 03/01/19 21:12 Dose: 20 mg Documented by:
[2019-03-02] MEDS: FENOFIBRATE - ORDER AWAITING ACTION SCH ×2 (15:35→15:50)
--- NOTE | 2019-03-02 16:50 | Hospitalist Progress Note ---
Date of Service March 02, 2019 Assessment & Plan (1) Chest pain: -CABG x2 with BARRAGAN to LAD and SVG to the ramus intermedius performed at [facility] on 08/27/09 -as per admitting physician reported that patient had Experienced nonexertional chest/epigastric pain, and Took nitroglycerin with relief. admission EKGs have not shown EKG changes of acute ischemia but troponins have been minimally elevated above reference ranges of normal troponin 0.046 and 0.052 pn 03/02/19 and then downtrended no acute telemetry events and cardiology service has been following the patient while in the hospital -Continue aspirin, carvedilol, lipid management. on trial of Pantoprazole in case of GERD, patient already on ranitidine and to continue -main focus of the pain is other the lower bilateral flanks that is intermittent and radiates to the shoulders as per patient (2) Hx of coronary artery disease: Management as above (3) Flank pain: main focus of the pain is other the lower bilateral flanks that is intermittent and radiates to the shoulders as per patient No renal calculi or hydronephrosis noted on CT. Mild perinephric stranding was noted, but urine does not appear to be infected. Flank pain may be musculoskeletal in nature. No evidence of rhabdomyolysis as CK is normal patient is generally ambulatory keep patient for pain control including baclofen, acetaminophen, prn narcotic with bowel regimen Cardiology service advises MRI imaging of the lower back. Patient waiting for MRI of Lumbar spine and pelvis (4) Abnormal urinalysis: admission Urine chemistry positive for heme, but only 0-4 RBC's noted no microscopic analysis No evidence of rhabdomyolysis as CK is normal no bacteria in 2 urinalysis studies (5) HTN (hypertension): Continue carvedilol and lisinopril. (6) GERD (gastroesophageal reflux disease): trial of Pantoprazole in case of GERD, patient already on ranitidine (7) HLD (hyperlipidemia): Continue simvastatin and fenofibrate. No evidence of rhabdomyolysis as CK is normal (8) DVT prophylaxis: Low to moderate risk for VTE. SCDs. Ambulation (9) Discharge planning issues: will need Family Medicine follow-up with Dr. Jordan. Cardiology follow-up with Dr. Barragan. Subjective Periodically patient has low back pain of the flanks that radiates to the shoulders and requires IV medications. Patient at other times appear comfortable and ambulatory. Cardiology service advises MRI imaging of the lower back. Patient waiting for MRI of Lumbar spine and pelvis. Patient denies shortness of breath or chest pain pain or abdominal pain. no vomiting Physical Exam Vital Signs (Past 24 Hours): Last Vital Signs Temp 36.5 C 03/02/19 11:32 Pulse 63 03/02/19 16:00 Resp 18 03/02/19 11:32 BP 117/71 03/02/19 11:32 Pulse Ox 92 03/02/19 11:32 Eyes: PERRL, conjunctivae normal, anicteric sclerae EOM intact bilaterally ENMT: external ear and nose normal, oropharynx normal Respiratory: normal respiratory effort, lungs clear to auscultation Cardiovascular: Rate/Rhythm: + bradycardic Gastrointestinal (Abdomen): normal bowel sounds, soft, nontender, no hepatosplenomegaly Musculoskeletal: Head/Neck/Chest: normocephalic and head atraumatic Neurologic: PERRL, EOMI, accommodation nl, no face palsy, no dysarthria Psychiatric: Orientation: alert and oriented x 3
[2019-03-02] MEDS: ASCORBIC ACID 500 MG TAB PO SCH (19:27)
[2019-03-02] MEDS: ASPIRIN 81 MG ECTAB PO SCH (19:28)
[2019-03-02] MEDS: CITALOPRAM 20 MG TAB PO SCH (19:28)
[2019-03-02] MEDS: LISINOPRIL 40 MG TAB PO SCH (19:28)
[2019-03-02] MEDS: CEROVITE ADV FORMULA TAB PO SCH (19:28)
[2019-03-02] MEDS: SIMVASTATIN 20 MG TAB PO SCH (19:29)
[2019-03-03] MEDS ORDERED: GADOBUTROL 65ML VIAL IV PRN (00:04)
[2019-03-03] MEDS: FENOFIBRATE - ORDER AWAITING ACTION SCH (00:12)
[2019-03-03] MEDS: OXYCODONE HCL IR 5 MG TAB (IMMEDIATE RELEASE) PO PRN ×2 (03:38→15:40)
[2019-03-03] MEDS: MoRPHine SULFATE 2 MG/ML CARP IV PRN (06:34)
--- NOTE | 2019-03-03 07:37 | Magnetic Resonance Report ---
MRI OF THE PELVIS WITH AND WITHOUT CONTRAST CLINICAL HISTORY: Back pain. Possible osteomyelitis. COMPARISON STUDY: CT of the abdomen and pelvis March 01, 2019. TECHNIQUE: Utilizing 1.5 Huma magnet, multiplanar, multiecho imaging of the pelvis was performed pre and postcontrast administration. Intravenous injection of 10 cc of Gadavist was uneventful. These no te that the MRI of the lumbar spine will be reported separately. FINDINGS: No marrow edema or marrow replacement is identified within the pelvis or his. There is no e vidence for osteomyelitis. There is no evidence for avascular necrosis within the femoral heads. No m ass or fluid collection is identified within the pelvis. No pelvic lymphadenopathy. Note is made of s igmoid diverticulosis. There is no evidence for diverticulitis within visualized portions of the colo n. Sacroiliac joints and symphysis pubis are intact. IMPRESSION: Unremarkable MRI of the pelvis. No evidence of osteomyelitis, fracture or marrow replace ment. Electronically signed by: Aashish Luis M.D. 03/03/2019 7:36 AM
[2019-03-03] MEDS: BACLOFEN 10 MG TAB PO SCH (08:02)
[2019-03-03] MEDS: SENNA 8.6 MG TAB PO SCH (08:02)
[2019-03-03] MEDS: PANTOprazole 40 MG TAB PO SCH (08:02)
[2019-03-03] MEDS: DOCUSATE SODIUM 100 MG CAP PO SCH (08:02)
[2019-03-03] MEDS: CARVEDILOL 6.25 MG TAB PO SCH (08:02)
--- NOTE | 2019-03-03 08:06 | Magnetic Resonance Report ---
LUMBAR SPINE MRI WITH AND WITHOUT CONTRAST HISTORY: back pain TECHNIQUE: Multiplanar multisequence MRI of the lumbar spine was performed both before and after the intravenous administration of contrast. COMPARISON: Abdomen and pelvis CT 03/01/2019. FINDINGS: For the purpose of the report the L5-S1 disc space will be located on axial image 22 of 25. L5 is demonstrated to be a transitional vertebra. Mild disc space narrowing at L4-L5. The remaining d isc spaces are preserved. There is disc desiccation from L1 through the L5 levels. There is mild face t degenerative changes within the lower lumbar spine. There is mild motion artifact. Paraspinal soft tissues are unremarkable. No abnormal enhancement. No endplate erosive changes to suggest discitis/os teomyelitis. The conus terminates at the T12 level. Mild subcutaneous edema within the lower lumbar r egion. No abnormal epidural enhancement or fluid collections. L1-L2: No significant central canal and are left-sided neural foraminal narrowing. There is a small r ight extraforaminal focal disc protrusion. This likely abuts the exiting right L1 nerve root. L2-L3: Small broad-based posterior disc bulge with a small right extraforaminal focal disc protrusion . This results in mild right neural foraminal narrowing and likely abuts the exiting nerve root. Ther e is also mild central canal and mild left-sided neural foraminal narrowing. L3-L4: Small broad-based posterior disc bulge resulting in mild central canal and mild bilateral neur al foraminal narrowing. L4-L5: Small broad-based posterior disc bulge resulting in mild bilateral neural foraminal narrowing. No significant central canal narrowing. L5-S1: No significant central canal or neural foraminal narrowing. IMPRESSION: 1. No evidence for discitis/osteomyelitis. 2. Degenerative changes as described above. 3. No fracture or subluxation. Electronically signed by: Eusebio Sandoval M.D. 03/03/2019 8:05 AM
[2019-03-03] MEDS: GABAPENTIN 100 MG CAP PO SCH ×2 (09:31→13:43)
[2019-03-03] MEDS ORDERED: MAGNESIUM HYDROXIDE SUSP 30 ML UDC PO PRN (09:36)
[2019-03-03] MEDS ORDERED: DOCUSATE SODIUM 100 MG CAP PO SCH (09:45)
--- NOTE | 2019-03-03 11:14 | Orthopedic Consultation ---
Date of Consultation March 03, 2019 Assessment & Plan (1) Back pain: Patient presents with episodic low back pain with acute exacerbation. There is no evidence of high-grade stenosis, large disc herniations, or fractures versus instability. I recommend evaluation through physical therapy when medically stable. He does not have any radicular complaints and do not believe he is a good candidate for any type of injections. I recommend ongoing Tylenol for pain control. He may benefit from outpatient physical therapy upon discharge. I discussed these findings with Dr. Chan and he agrees. Present on Admission?: Yes History of Present Illness Attending Physician: Tremaine Desir MD History of Present Illness Patient is a 73-year-old male who presented to the emergency room with epigastric pain as well as flank pain. He was admitted to the hospital for pain control and had elevated troponins. While here in the hospital he has had continued pain in the flank region. His history is significant for episodic back pain that he often has manipulations for when the pain intensifies. This bout of pain started this past Wednesday. The pain is not severe at this point. It does not radiate into his legs he is not noted any leg weakness. Both MRIs of the lumbar spine and pelvis are available for review. He denies any other numbness, tingling, paresthesias. Allergies Allergy/AdvReac Type Severity Reaction Status Date / Time No Known Allergies Allergy Unverified 03/01/19 05:00 Home Medications Home Medications Medication Instructions Recorded Confirmed Type Bioflex 1 tab PO QPM 03/01/19 03/01/19 History ascorbic acid (vitamin C) 1 g PO QPM 03/01/19 03/01/19 History aspirin 81 mg PO QPM 03/01/19 03/01/19 History carvedilol [Coreg] 6.25 mg PO BID 03/01/19 03/01/19 History citalopram 20 mg PO QPM 03/01/19 03/01/19 History fenofibrate 54 mg PO QPM 03/01/19 03/01/19 History lisinopril 40 mg PO QPM 03/01/19 03/01/19 History multivitamin with minerals 1 tab PO QPM 03/01/19 03/01/19 History ranitidine HCl 150 mg PO BID 03/01/19 03/01/19 History simvastatin 20 mg PO PM 03/01/19 03/01/19 History gabapentin 100 mg PO TID 30 Days #90 cap 03/03/19 Rx pantoprazole 40 mg PO QAM 30 Days #30 tab 03/03/19 Rx sennosides [Senokot] 8.6 mg PO QAM 30 Days #30 tab 03/03/19 Rx Patient History Medical History HTN (hypertension) (Chronic) HLD (hyperlipidemia) (Chronic) GERD (gastroesophageal reflux disease) (Chronic) Hx of coronary artery disease (Chronic) Surgical History S/P CABG x 2 (Chronic) Status post cholecystectomy (Chronic) Family History Father Coronary heart disease Parkinson disease Grandmother (Maternal) Diabetes Other No significant family history Social History Preferred Language: Lao Beliefs That Will Affect Care: None Current Living Situation: Spouse Current Living Situation Comment: Lives at home with and brother. Other Information That Helps Us Care for You: No Feels Safe at Home: Yes Safety Concerns: Feels Safe At This Time Smoking Status: Never smoker Hx Alcohol Use: No Hx Substance Use: No Review of Systems Constitutional: as per Subjective / HPI Physical Exam Vital Signs (Past 24 Hours): Last Vital Signs Temp 36.7 C 03/03/19 07:07 Pulse 65 03/03/19 07:07 Resp 18 03/03/19 07:07 BP 145/85 H 03/03/19 07:07 Pulse Ox 92 03/03/19 07:07 Physical Exam: On exam the patient is alert and oriented. His abdomen is soft nontender. Is nontender along the lower portion of the lumbar spine is nontender in the PSIS. His lower extremity motor exam reveals no focal atrophy strength 5 out of 5 detailed muscle testing without exception. Sensation is intact to light touch proprioception is intact gait was not observed. He has no nerve root tension signs. Full range of motion of the hips and knees. Results & Data Diagnostic Findings MRI of lumbar spine performed recently is available for review. This reveals degenerative disc disease at L1-2, L2-3, L3-4, and L4-5. L5 is partially sacralized. There is a lateral disc protrusion L2-3 on the right causing mild neuroforaminal stenosis. There is a central disc protrusion at L4-5 which is modest in nature. There is no high-grade stenosis, fractures, or evidence of infection.
[2019-03-03] MEDS ORDERED: DOCUSATE SODIUM 100 MG CAP PO ONE (14:17)
[2019-03-03] MEDS ORDERED: POLYETHYLENE (MIRALAX) 17 GM PACK PO PRN (14:17)
--- NOTE | 2019-03-03 14:30 | Hospitalist Progress Note ---
Date of Service March 03, 2019 Assessment & Plan (1) Chest pain: Chest Pain History of Ischemic heart disease -CABG x2 with BARRAGAN to LAD and SVG to the ramus intermedius performed at [facility] on 08/27/09 -as per admitting physician reported that patient had Experienced nonexertional chest/epigastric pain, and Took nitroglycerin with relief. admission EKGs have not shown EKG changes of acute ischemia but troponins have been minimally elevated above reference ranges of normal troponin 0.046 and 0.052 pn 03/02/19 and then downtrended no acute telemetry events and cardiology service has been following the patient while in the hospital -Continue aspirin, carvedilol, lipid management. on trial of Pantoprazole in case of GERD, patient already on ranitidine and to continue -main focus of the pain is other the lower bilateral flanks that is intermittent and radiates to the shoulders as per patient -patient has close follow up with cardiology as outpatient -have discussed with patient about discharge on analgesics such as acetaminophen, baclofen, gabapentin, continue with bowel regimen, and ambulation as tolerated (2) Hx of coronary artery disease: Management as above (3) Flank pain: degenerative disc disease, lumbar region possibly causing back pain on this hospital stay the main focus of the pain is of the lower bilateral flanks that is intermittent and radiates to the shoulders as per patient No renal calculi or hydronephrosis noted on CT. Mild perinephric stranding was noted, but urine does not appear to be infected. Flank pain may be musculoskeletal in nature. No evidence of rhabdomyolysis as CK is normal patient is generally ambulatory in the hospital patient was given for pain control including baclofen, acetaminophen, prn narcotic with bowel regimen Cardiology service advised MRI imaging of the lower back. LUMBAR SPINE MRI WITH AND WITHOUT CONTRAST HISTORY: back pain TECHNIQUE: Multiplanar multisequence MRI of the lumbar spine was performed both before and after the intravenous administration of contrast. COMPARISON: Abdomen and pelvis CT 03/01/2019. FINDINGS: For the purpose of the report the L5-S1 disc space will be located on axial image 22 of 25. L5 is demonstrated to be a transitional vertebra. Mild disc space narrowing at L4-L5. The remaining disc spaces are preserved. There is disc desiccation from L1 through the L5 levels. There is mild facet degenerative changes within the lower lumbar spine. There is mild motion artifact. Paraspinal soft tissues are unremarkable. No abnormal enhancement. No endplate erosive changes to suggest discitis/osteomyelitis. The conus terminates at the T12 level. Mild subcutaneous edema within the lower lumbar region. No abnormal epidural enhancement or fluid collections. L1-L2: No significant central canal and are left-sided neural foraminal narrowing. There is a small right extraforaminal focal disc protrusion. This likely abuts the exiting right L1 nerve root. L2-L3: Small broad-based posterior disc bulge with a small right extraforaminal focal disc protrusion. This results in mild right neural foraminal narrowing and likely abuts the exiting nerve root. There is also mild central canal and mild left-sided neural foraminal narrowing. L3-L4: Small broad-based posterior disc bulge resulting in mild central canal and mild bilateral neural foraminal narrowing. L4-L5: Small broad-based posterior disc bulge resulting in mild bilateral neural foraminal narrowing. No significant central canal narrowing. L5-S1: No significant central canal or neural foraminal narrowing. IMPRESSION: 1. No evidence for discitis/osteomyelitis. 2. Degenerative changes as described above. 3. No fracture or subluxation. MRI OF THE PELVIS WITH AND WITHOUT CONTRAST COMPARISON STUDY: CT of the abdomen and pelvis March 01, 2019. TECHNIQUE: Utilizing 1.5 Huma magnet, multiplanar, multiecho imaging of the pelvis was performed pre and postcontrast administration. Intravenous injection of 10 cc of Gadavist was uneventful. These note that the MRI of the lumbar spine will be reported separately. FINDINGS: No marrow edema or marrow replacement is identified within the pelvis or his. There is no evidence for osteomyelitis. There is no evidence for avascular necrosis within the femoral heads. No mass or fluid collection is identified within the pelvis. No pelvic lymphadenopathy. Note is made of sigmoid diverticulosis. There is no evidence for diverticulitis within visualized portions of the colon. Sacroiliac joints and symphysis pubis are intact. IMPRESSION: Unremarkable MRI of the pelvis. No evidence of osteomyelitis, fracture or marrow replacement Patient was seen by orthopedic consult on 03/03/19 There is no evidence of high-grade stenosis, large disc herniations, or fractures versus instability. I recommend evaluation through physical therapy when medically stable. He does not have any radicular complaints and do not believe he is a good candidate for any type of injections. -have discussed with patient about discharge on analgesics such as acetaminophen, baclofen, gabapentin, continue with bowel regimen, and ambulation as tolerated (4) Abnormal urinalysis: admission Urine chemistry positive for heme, but only 0-4 RBC's noted no microscopic analysis No evidence of rhabdomyolysis as CK is normal no bacteria in 2 urinalysis studies (5) HTN (hypertension): Continue carvedilol and lisinopril. (6) GERD (gastroesophageal reflux disease): trial of Pantoprazole in case of GERD, patient already on ranitidine (7) HLD (hyperlipidemia): Continue simvastatin and fenofibrate. No evidence of rhabdomyolysis as CK is normal (8) DVT prophylaxis: Low to moderate risk for VTE, SCDs, Ambulation (9) Discharge planning issues: Discharge Diagnosis degenerative disc disease of lumbar region possibly causing back pain, Flank pain, Chest Pain, History of Ischemic heart disease, Hypertension -have discussed with patient about discharge on analgesics such as acetaminophen, baclofen, gabapentin, continue with bowel regimen, and ambulation as tolerated 03/06/2019 9:00 AM Provider Deniz Barragan DO Department Cardiology, [facility] 03/08/2019 1:20 PM Provider David Jordan MD Department [facility] 06/20/2019 8:40 AM Provider David Jordan MD Department [facility] 07/05/2019 10:30 AM Provider Deniz Barragan DO Department Cardiology, [facility] Subjective Patient appears comfortable on exam. he is not in distress. not in bad back pain. denies chest pain. no shortness of breath. did not make bowel movement today. no problems with urination. we discussed at bedside the hospital imaging studies and recommendations from orthopedics and need to follow up [facility] primary care doctor and cardiology Physical Exam Vital Signs (Past 24 Hours): Last Vital Signs Temp 36.9 C 03/03/19 11:47 Pulse 63 03/03/19 11:47 Resp 20 03/03/19 11:47 BP 135/76 03/03/19 11:47 Pulse Ox 91 03/03/19 11:47 Eyes: PERRL, conjunctivae normal, anicteric sclerae EOM intact bilaterally ENMT: external ear and nose normal, oropharynx normal Neck: trachea midline, no thyromegaly normal visual inspection Respiratory: normal respiratory effort, lungs clear to auscultation Cardiovascular: Rate/Rhythm: + bradycardic Chest (Breasts): normal inspection/palpation of breasts Gastrointestinal (Abdomen): normal bowel sounds, soft, nontender, no hepatosplenomegaly Musculoskeletal: Head/Neck/Chest: normocephalic and head atraumatic Neurologic: PERRL, EOMI, accommodation nl, no face palsy, no dysarthria Psychiatric: Orientation: alert and oriented x 3
--- NOTE | 2019-03-03 14:44 | Discharge Summary ---
Date of Service March 03, 2019 Admission HPI Per Admitting Provider 73-year-old male followed by Dr. Jordan for Family Medicine and Dr. Basurto for Cardiology. History of coronary artery disease (status post CABG and other medical problems as noted below). Ill last month with sinus drainage, bronchitis, diarrhea, and urticaria. Those symptoms have resolved. Presented to the ED complaining of bilateral flank pain. He was concerned that he was having problems with his kidneys. No fever, dysuria, gross hematuria. Also experiencing chest pain/epigastric pain. The pain does not radiate. Symptoms are nonexertional and not related to meals. He took a sublingual nitroglycerin tablet 2 nights prior to admission with some relief. No significant dyspnea. No nausea or vomiting. Admission Exam Per Admitting Provider Constitutional: WD/WN, vitals as above no acute distress Eyes: PERRL, conjunctivae normal, anicteric sclerae ENMT: external ear and nose normal, oropharynx normal Mouth: + edentulous Neck: trachea midline, no thyromegaly Respiratory: normal respiratory effort, lungs clear to auscultation Cardiovascular: Rate/Rhythm: regular rate Heart Sounds: + murmur (II/ sys murmur LSB); no gallop and no cardiac rub Vessels: normal peripheral pulses; no JVD Extremities: normal capillary refill; no calf tenderness and no edema Gastrointestinal (Abdomen): normal bowel sounds, soft, nontender, no hepatosplenomegaly ventral hernia Musculoskeletal: Head/Neck/Chest: neck supple Extremities: strength 5/5 throughout; no cyanosis and no clubbing Skin: no rashes, warm and dry Neurologic: PERRL, EOMI no facial palsy no dysarthria or aphasia patellar DTR's 2/2 bilat Psychiatric: Orientation: alert and oriented x 3 Affect: euthymic affect Lymphatic: no cervical lymphadenopathy Principal Diagnosis degenerative disc disease of lumbar region possibly causing back pain, Flank pain, Chest Pain, History of Ischemic heart disease, Hypertension Discharge Exam Eyes PERRL, conjunctivae normal, anicteric sclerae EOM intact bilaterally ENMT external ear and nose normal, oropharynx normal Neck trachea midline, no thyromegaly normal visual inspection Respiratory normal respiratory effort, lungs clear to auscultation Cardiovascular Rate/Rhythm: + bradycardic Chest (Breasts) normal inspection/palpation of breasts Gastrointestinal (Abdomen) normal bowel sounds, soft, nontender, no hepatosplenomegaly Musculoskeletal Head/Neck/Chest: normocephalic and head atraumatic Neurologic PERRL, EOMI, accommodation nl, no face palsy, no dysarthria Psychiatric Orientation: alert and oriented x 3 Discharge Data Allergies Allergy/AdvReac Type Severity Reaction Status Date / Time No Known Allergies Allergy Unverified 03/01/19 05:00 Consultations 03/01/19 04:13 ED Decision to Admit Stat 03/01/19 06:05 Consult Cardiology Routine 03/03/19 08:32 Consult Orthopedic Surgery Routine Ordered Studies 03/01/19 02:39 CT abd pelvis wo con Urgent 03/02/19 09:55 MR lumbar spine wo/w con Routine MR pelvis wo/w con Routine Hospital Course (1) Chest pain: Chest Pain History of Ischemic heart disease -CABG x2 with BARRAGAN to LAD and SVG to the ramus intermedius performed at [facility] on 08/27/09 -as per admitting physician reported that patient had Experienced nonexertional chest/epigastric pain, and Took nitroglycerin with relief. admission EKGs have not shown EKG changes of acute ischemia but troponins have been minimally elevated above reference ranges of normal troponin 0.046 and 0.052 pn 03/02/19 and then downtrended no acute telemetry events and cardiology service has been following the patient while in the hospital -Continue aspirin, carvedilol, lipid management. on trial of Pantoprazole in case of GERD, patient already on ranitidine and to continue -main focus of the pain is other the lower bilateral flanks that is intermittent and radiates to the shoulders as per patient -patient has close follow up with cardiology as outpatient -have discussed with patient about discharge on analgesics such as acetaminophen, baclofen, gabapentin, continue with bowel regimen, and ambulation as tolerated (2) Hx of coronary artery disease: Management as above (3) Flank pain: degenerative disc disease, lumbar region possibly causing back pain on this hospital stay the main focus of the pain is of the lower bilateral flanks that is intermittent and radiates to the shoulders as per patient No renal calculi or hydronephrosis noted on CT. Mild perinephric stranding was noted, but urine does not appear to be infected. Flank pain may be musculoskeletal in nature. No evidence of rhabdomyolysis as CK is normal patient is generally ambulatory in the hospital patient was given for pain control including baclofen, acetaminophen, prn narcotic with bowel regimen Cardiology service advised MRI imaging of the lower back. LUMBAR SPINE MRI WITH AND WITHOUT CONTRAST HISTORY: back pain TECHNIQUE: Multiplanar multisequence MRI of the lumbar spine was performed both before and after the intravenous administration of contrast. COMPARISON: Abdomen and pelvis CT 03/01/2019. FINDINGS: For the purpose of the report the L5-S1 disc space will be located on axial image 22 of 25. L5 is demonstrated to be a transitional vertebra. Mild disc space narrowing at L4-L5. The remaining disc spaces are preserved. There is disc desiccation from L1 through the L5 levels. There is mild facet degenerative changes within the lower lumbar spine. There is mild motion artifact. Paraspinal soft tissues are unremarkable. No abnormal enhancement. No endplate erosive changes to suggest discitis/osteomyelitis. The conus terminates at the T12 level. Mild subcutaneous edema within the lower lumbar region. No abnormal epidural enhancement or fluid collections. L1-L2: No significant central canal and are left-sided neural foraminal narrowing. There is a small right extraforaminal focal disc protrusion. This likely abuts the exiting right L1 nerve root. L2-L3: Small broad-based posterior disc bulge with a small right extraforaminal focal disc protrusion. This results in mild right neural foraminal narrowing and likely abuts the exiting nerve root. There is also mild central canal and mild left-sided neural foraminal narrowing. L3-L4: Small broad-based posterior disc bulge resulting in mild central canal and mild bilateral neural foraminal narrowing. L4-L5: Small broad-based posterior disc bulge resulting in mild bilateral neural foraminal narrowing. No significant central canal narrowing. L5-S1: No significant central canal or neural foraminal narrowing. IMPRESSION: 1. No evidence for discitis/osteomyelitis. 2. Degenerative changes as described above. 3. No fracture or subluxation. MRI OF THE PELVIS WITH AND WITHOUT CONTRAST COMPARISON STUDY: CT of the abdomen and pelvis March 01, 2019. TECHNIQUE: Utilizing 1.5 Huma magnet, multiplanar, multiecho imaging of the pelvis was performed pre and postcontrast administration. Intravenous injection of 10 cc of Gadavist was uneventful. These note that the MRI of the lumbar spine will be reported separately. FINDINGS: No marrow edema or marrow replacement is identified within the pelvis or his. There is no evidence for osteomyelitis. There is no evidence for avascular necrosis within the femoral heads. No mass or fluid collection is identified within the pelvis. No pelvic lymphadenopathy. Note is made of sigmoid diverticulosis. There is no evidence for diverticulitis within visualized portions of the colon. Sacroiliac joints and symphysis pubis are intact. IMPRESSION: Unremarkable MRI of the pelvis. No evidence of osteomyelitis, fracture or marrow replacement Patient was seen by orthopedic consult on 03/03/19 There is no evidence of high-grade stenosis, large disc herniations, or fractures versus instability. I recommend evaluation through physical therapy when medically stable. He does not have any radicular complaints and do not believe he is a good candidate for any type of injections. -have discussed with patient about discharge on analgesics such as acetaminophen, baclofen, gabapentin, continue with bowel regimen, and ambulation as tolerated (4) Abnormal urinalysis: admission Urine chemistry positive for heme, but only 0-4 RBC's noted no microscopic analysis No evidence of rhabdomyolysis as CK is normal no bacteria in 2 urinalysis studies (5) HTN (hypertension): Continue carvedilol and lisinopril. (6) GERD (gastroesophageal reflux disease): trial of Pantoprazole in case of GERD, patient already on ranitidine (7) HLD (hyperlipidemia): Continue simvastatin and fenofibrate. No evidence of rhabdomyolysis as CK is normal (8) DVT prophylaxis: Low to moderate risk for VTE, SCDs, Ambulation (9) Discharge planning issues: Discharge Diagnosis degenerative disc disease of lumbar region possibly causing back pain, Flank pain, Chest Pain, History of Ischemic heart disease, Hypertension -have discussed with patient about discharge on analgesics such as acetaminophen, baclofen, gabapentin, continue with bowel regimen, and ambulation as tolerated 03/06/2019 9:00 AM Provider Deniz Barragan DO Department Cardiology, [facility] 03/08/2019 1:20 PM Provider David Jordan MD Department [facility] 06/20/2019 8:40 AM Provider David Jordan MD Department [facility] 07/05/2019 10:30 AM Provider Deniz Barragan DO Department Cardiology, [facility] Total Time Total Time Spent Total Time Spent (In Minutes): 40 minutes Total Time Includes: Examination of the Patient, Discharge Planning and Medication Reconciliation Discharge Plan Discharge Items Patient Disposition: Home - Self-Care Reason For Visit: ELEVATED TROPONIN, ABDOMINAL / FLANK PAIN Discharge Diagnosis: degenerative disc disease of lumbar region possibly causing back pain, Flank pain, Chest Pain, History of Ischemic heart disease, Hypertension Condition: Good Discharge Goals: Improve disease control Activity: Resume your previous activity Non-emergency contact: Primary Care Provider and Telegraph Dispatcher Call non-emergency contact if: you have any medication questions Follow-up/Referrals: David Jordan [Primary Care Provider] - Diet: Regular and Heart Healthy Addtl Provider Instructions: -have discussed with patient about discharge on analgesics such as acetaminophen, baclofen, gabapentin, continue with bowel regimen, and ambulation as tolerated 03/06/2019 9:00 AM Provider Deniz Barragan DO Department Cardiology, [facility] 03/08/2019 1:20 PM Provider David Jordan MD Department [facility] 06/20/2019 8:40 AM Provider David Jordan MD Department [facility] 07/05/2019 10:30 AM Provider Deniz Barragan DO Department Cardiology, [facility] Prescriptions: New sennosides [Senokot] 8.6 mg Tablet 8.6 mg PO QAM 30 Days Qty: 30 RF: 0 baclofen 10 mg Tablet 10 mg PO BID 5 Days Qty: 10 RF: 0 gabapentin 100 mg Capsule 100 mg PO TID 30 Days Qty: 90 RF: 0 acetaminophen [Mapap (acetaminophen)] 325 mg Tablet 325 mg PO Q6H PRN (Reason: pain) 5 Days Qty: 20 RF: 0 pantoprazole 40 mg Tablet,Delayed Release (Dr/Ec) 40 mg PO QAM 30 Days Qty: 30 RF: 0 Continued ascorbic acid (vitamin C) 1,000 mg Tablet 1 g PO QPM RF: 0 carvedilol [Coreg] 6.25 mg Tablet 6.25 mg PO BID RF: 0 aspirin 81 mg Tablet,Delayed Release (Dr/Ec) 81 mg PO QPM RF: 0 citalopram 20 mg Tablet 20 mg PO QPM RF: 0 simvastatin 20 mg Tablet 20 mg PO PM RF: 0 ranitidine HCl 150 mg Tablet 150 mg PO BID RF: 0 multivitamin with minerals Tablet 1 tab PO QPM RF: 0 lisinopril 40 mg Tablet 40 mg PO QPM RF: 0 fenofibrate 54 mg Tablet 54 mg PO QPM RF: 0 Bioflex [id number] mg Tablet 1 tab PO QPM RF: 0 Stand-Alone Forms: [facility] Discharge Orders: Discharge Order (Routine); Ordered 03/03/19 Ordered By: Tremaine Desir Admission Data Admit Date/Time: 03/01/19 05:16 Attending Provider: Tremaine Desir Admit Provider: Francois Ralph Primary Care Provider: David Jordan Other Providers: Francois Ralph ; Deniz Barragan ; Warren Chan Service: Telemetry
--- NOTE | 2019-03-03 16:21 | Cardiology Progress Note ---
Date of Service March 03, 2019 Assessment & Plan (1) Back pain: Acute exacerbation of chronic low back pain. Trending toward improvement. Conservative measures recommended. Future outpatient considerations may include assessment by pain management for epidural steroid injection. (2) Chest pain: Patient with angina episodes that occurred in the setting of what I feel was severe musculoskeletal low back pain. EKG without acute changes. 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 Plan for close outpatient follow-up with me next week and will reassess need for ischemic workup with nuclear stress testing, which was an effective test for capturing the diagnosis of ischemia that led to his CABG, versus cardiac catheterization, versus ongoing medical management without further workup. His troponin elevation was only mild, was in the setting of normal EKG. Feel it is premature to proceed directly to cardiac catheterization at this time. Subjective Chief complaint: Follow-up low back pain, episodic shortness of breath and chest pain Subjective: Patient notes mild improvement in his low back pain. No additional anginal symptoms. Physical Exam Vital Signs (Past 24 Hours): Last Vital Signs Temp 36.9 C 03/03/19 15:21 Pulse 63 03/03/19 15:21 Resp 20 03/03/19 15:21 BP 135/76 03/03/19 15:21 Pulse Ox 91 03/03/19 15:21 Physical Exam: General: no acute distress and stated age Eyes: conjunctiva are pink and non-injected, sclera clear Neck: normal jugular venous pulse, no hepatojugular reflux Chest: normal shape and normal respiratory effort Lungs: clear to auscultation and percussion Cardiac Exam: - regular heart sounds, no murmurs, rubs, or gallops, no jugular venous distention Abdomen: abdomen soft, non-tender, no abnormal masses and no hepatosplenomegaly Extremities: no edema and no cyanosis Neuro:awake, coversant, follows commands, no focal motor deficits Psych: appropriate affect and insight. Results & Data Laboratory Results Troponin peaked at 0.052 ng/ml and trended back to normal for 2 subsequent measurements on 03/01/19 and 03/02/19. Diagnostic Findings Radiology report of MRI of the spine and pelvis: Between L1 and L2 there is a small right extraforaminal disc protrusion that likely abuts the exiting of the right L1 nerve root. L2-L3, small broad-based posterior disc bulge with small right extraforaminal disc protrusion. L3-L4 with small broad-based disc bulge with mild central canal and mild bilateral neural foraminal narrowing L4-L5 small broad-based posterior disc bulge resulting in mild bilateral neuroforaminal narrowing. -No evidence of discitis or osteomyelitis
== END 2019-03-03 16:16 | disposition home or self-care (01) | DRG 552 ==
LOC: ED 00:34 → 2S 05:16